=== PATIENT | female | born 1970 | race Caucasian/White ===

== ENCOUNTER 2017-04-22 13:20 | Observation (INO) | payer OTHER ==
[2017-04-22] MEDS ORDERED: Sodium Chloride 0.9% 1000 ML 1,000 ML IV STA (13:43)
[2017-04-22] MEDS ORDERED: PROTONIX 40 MG IV IV ONE ×2 (13:46→13:58)
[2017-04-22 13:50] LABS: BASOPHIL % 0.5 % (0.0-0.4); Eosinophil % 1.6 % (0.00-5.0); Granulocytes % 52.6 % (36.0-66.0); Lymphocytes % 39.1 % (24.0-44.0); Mean Cell Volume 88.1 fl (78-100); Mean Corpuscular Hemoglobin 28.7 pg (26-32); Mean Platelet Volume 8.7 fl (6-9.5); Monocytes % 6.2 % (0.0-12.0); Platelet Count 276 K/mm3 (150-450); Red Blood Count 4.71 M/mm3 (4.1-5.4); Red Cell Distribution Width 13.6 % (11.5-14.0); White Blood Count 6.1 K/mm3 (4.0-10.5)
--- NOTE | 2017-04-22 13:51 | ERPHSYRPT ---
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, hx gerd, no pud, not dm, no mi, no htn, no smoking, lmp 2yrs Prior Episodes: single episode today Timing/Duration: today Context: sitting Allergies/Adverse Reactions: No Known Drug Allergies Allergy (Verified 03/17/16 21:02) Home Medications: Potassium Chloride 20 Meq Tab [Potassium Chloride 20 MEQ TABLET] 20 meq PO DAILY 03/18/14 [History] Diphenhydramine HCl 25 mg [Benadryl 25 mg Capsule] 25 mg PO HS 03/17/16 [ History] Magnesium Oxide 400 mg [Mag-Ox 400] 400 mg PO DAILY 03/17/16 [History] Hx Tetanus, Diphtheria Vaccination/Date Given: Yes (2012) Hx Influenza Vaccination/Date Given: Yes Hx Pneumococcal Vaccination/Date Given: No Immunizations Up to Date: Yes - Past Medical History Pertinent Past Medical History: Yes Neurological History: No Pertinent History ENT History: No Pertinent History Cardiac History: Other Respiratory History: No Pertinent History Endocrine Medical History: No Pertinent History Musculoskeletal History: No Pertinent History GI Medical History: No Pertinent History History: No Pertinent History Psycho-Social History: No Pertinent History Female Reproductive Disorders: No Pertinent History Other Medical History: Low Potassium, mag - Past Surgical History Past Surgical History: Yes Neuro Surgical History: No Pertinent History Cardiac: No Pertinent History Respiratory: No Pertinent History Gastrointestinal: No Pertinent History Genitourinary: No Pertinent History Musculoskeletal: No Pertinent History Female Surgical History: Tubal Ligation Other Surgical History: tonsils - Social History Smoking Status: Never smoker Exposure to second hand smoke: No Alcohol Use: None Drug Use: none Patient Lives Alone: No Significant Family History: no pertinent family hx - Female History Hx Last Menstrual Period: post Hx Now: No - Review of Systems Constitutional: No Symptoms Eyes: No Symptoms Ears, Nose, & Throat: No Symptoms Respiratory: No Symptoms Cardiac: Chest Pain Abdominal/Gastrointestinal: Abdominal Pain Musculoskeletal: No Back Pain Skin: No Symptoms Neurological: Dizziness, No Focal Weakness Psychological: No Symptoms Physical Exam - Nursing Vital Signs Nursing Vital Signs: Initial Vital Signs Temperature 97.4 F 04/22/17 13:29 Pulse Rate 74 04/22/17 13:29 Respiratory Rate 18 04/22/17 13:29 Blood Pressure 184/100 04/22/17 13:29 O2 Sat by Pulse Oximetry 100 04/22/17 13:29 Pain Scale Pain Intensity 0 - Physical Exam General Appearance: no apparent distress, alert Eye Exam: bilateral eye: PERRL, EOMI Ears, Nose, Throat Exam: moist mucous membranes Neck Exam: normal inspection Respiratory: normal breath sounds Cardiovascular: regular rate/rhythm Gastrointestinal: soft, No tenderness Extremity Exam: normal inspection Mental Status: alert, oriented x 3, 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 Exam: normal hearing, normal speech Skin Exam: normal color, warm, dry SpO2 Interpretation: normal SpO2: 100 Oxygen Delivery: Room Air - Course Nursing assessment & vital signs reviewed: Yes EKG Interpreted by Me: Other (nsr 64, no stemi) - Radiology Exams Chest X-ray Interpretation: Discussed w/ radiologist, Other (atelectasis w/o gross infiltrate) - CT Exams Head CT Interpretation: Negative, Discussed w/radiologist Ordered Tests: Active Orders 24 hr Category Date Time Status Still Tender STAT Care 04/22/17 13:45 Active EKG-ER Only STAT Care 04/22/17 13:43 Active IV Insertion STAT Care 04/22/17 13:43 Active CHEST 1 VIEW (PORTABLE) Stat Exams 04/22/17 13:44 Completed HEAD WITHOUT CONTRAST [CT] Stat Exams 04/22/17 13:45 Completed CBC W DIFF Stat Lab 04/22/17 13:35 Completed CMP Stat Lab 04/22/17 13:35 Completed CULTURE,URINE Stat Lab 04/22/17 Received D-DIMER QUANTITATION Stat Lab 04/22/17 13:35 Completed HCG QUALITATIVE,SERUM Stat Lab 04/22/17 14:00 Completed PROTIME WITH INR Stat Lab 04/22/17 13:35 Completed TROPONIN Q3H Lab 04/22/17 13:35 Completed TROPONIN Q3H Lab 04/22/17 18:00 Ordered TROPONIN Q3H Lab 04/22/17 21:00 Ordered TROPONIN Q3H Lab 04/23/17 00:00 Ordered TROPONIN Q3H Lab 04/23/17 03:00 Ordered UA W/ MICROSCOPIC Stat Lab 04/22/17 Completed Transfer Order Routine Transfer 04/22/17 Ordered Medication Summary Discontinued Medications Generic Name Dose Route Start Last Admin Trade Name Geoq PRN Reason Stop Dose Admin Aspirin 324 mg 04/22/17 16:16 04/22/17 16:19 Baby Aspirin 81 Mg Chew PO 04/22/17 16:17 324 mg STAT ONE Administration Sodium Chloride 1,000 mls @ 999 mls/hr 04/22/17 13:43 04/22/17 14:08 Sodium Chloride 0.9% 1000 Ml IV 04/22/17 14:43 999 mls/hr .Q1H1M STA Administration Sodium Chloride Confirm 04/22/17 13:58 Sodium Chloride 0.9% 1000 Ml Administered 04/22/17 13:59 Dose 1,000 mls @ ud .ROUTE .STK-MED ONE Pantoprazole Sodium 40 mg 04/22/17 13:46 04/22/17 14:08 Protonix 40 Mg Iv IV 04/22/17 13:47 40 mg STAT ONE Administration Pantoprazole Sodium Confirm 04/22/17 13:58 Protonix 40 Mg Iv Administered 04/22/17 13:59 Dose 40 mg IV .STK-MED ONE Lab/Rad Data: Laboratory Result Diagrams 04/22/17 13:35 04/22/17 13:35 Laboratory Results 04/22/17 04/22/17 04/22/17 Range/Units Unknown 14:00 13:35 WBC (4.0-10.5) K/mm3 RBC (4.1-5.4) M/mm3 Hgb (12.0-16.0) gm/dl Hct (35-47) % MCV (78-100) fl MCH (26-32) pg MCHC (32-36) g/dl RDW (11.5-14.0) % Plt Count (150-450) K/mm3 MPV (6-9.5) fl Gran % (36.0-66.0) % Lymphocytes % (24.0-44.0) % Monocytes % (0.0-12.0) % Eosinophils % (0.00-5.0) % Basophils % (0.0-0.4) % Basophils # (0-0.4) INR (0.8-3.0) D-Dimer (0-500) ng/mL Sodium (136-145) mEq/L Potassium (3.5-5.1) mEq/L Chloride (98-107) mEq/L Carbon Dioxide (21-32) mEq/L Anion Gap (5-15) MEQ/L BUN (9-20) mg/dL Creatinine (0.55-1.30) mg/dl Estimated GFR ML/MIN Glucose (70-110) MG/DL Calcium (8.5-10.1) mg/dL Total Bilirubin (0.2-1.0) mg/dL AST (15-37) U/L ALT (12-78) U/L Alkaline Phosphatase (46-116) U/L Troponin I < 0.017 (0.000-0.056) ng/ml Serum Total Protein (6.4-8.2) gm/dL Albumin (3.4-5.0) g/dL Serum , Qual NEGATIVE (Negative) Ur Collection Type CCMS Urine Color YELLOW (YELLOW) Urine Appearance CLEAR (CLEAR) Urine pH 5.0 (5-6) Ur Specific Roy 1.020 (1.005-1.025) Urine Protein NEGATIVE (Negative) Urine Ketones NEGATIVE (NEGATIVE) Urine Blood 250 (0-5) Adonay/ul Urine Nitrite NEGATIVE (NEGATIVE) Urine Bilirubin NEGATIVE (NEGATIVE) Urine Urobilinogen NORMAL (0-1) mg/dL Ur Leukocyte Esterase TRACE (NEGATIVE) Urine Microscopic RBC 2-5 (0-2) /HPF Urine Microscopic WBC 2-5 (0-5) /HPF Ur Epithelial Cells FEW (FEW) /HPF Urine Bacteria RARE (NEGATIVE) /HPF Urine Yeast RARE (NEGATIVE) /HPF Urine Culture Reflexed YES (NO) Urine Glucose NEGATIVE (NEGATIVE) mg/dL Specimen Received 04-22-17 1515 04/22/17 04/22/17 04/22/17 Range/Units 13:35 13:35 13:35 WBC 6.1 (4.0-10.5) K/mm3 RBC 4.71 (4.1-5.4) M/mm3 Hgb 13.5 (12.0-16.0) gm/dl Hct 41.5 (35-47) % MCV 88.1 (78-100) fl MCH 28.7 (26-32) pg MCHC 32.5 (32-36) g/dl RDW 13.6 (11.5-14.0) % Plt Count 276 (150-450) K/mm3 MPV 8.7 (6-9.5) fl Gran % 52.6 (36.0-66.0) % Lymphocytes % 39.1 (24.0-44.0) % Monocytes % 6.2 (0.0-12.0) % Eosinophils % 1.6 (0.00-5.0) % Basophils % 0.5 (0.0-0.4) % Basophils # 0.03 (0-0.4) INR 1.01 (0.8-3.0) D-Dimer 307 (0-500) ng/mL Sodium 138 (136-145) mEq/L Potassium 3.2 L (3.5-5.1) mEq/L Chloride 100 (98-107) mEq/L Carbon Dioxide 28.7 (21-32) mEq/L Anion Gap 12.1 (5-15) MEQ/L BUN 16 (9-20) mg/dL Creatinine 1.02 (0.55-1.30) mg/dl Estimated GFR > 60 ML/MIN Glucose 106 (70-110) MG/DL Calcium 9.2 (8.5-10.1) mg/dL Total Bilirubin 0.20 (0.2-1.0) mg/dL AST 23 (15-37) U/L ALT 26 (12-78) U/L Alkaline Phosphatase 147 H (46-116) U/L Troponin I (0.000-0.056) ng/ml Serum Total Protein 7.8 (6.4-8.2) gm/dL Albumin 4.2 (3.4-5.0) g/dL Serum , Qual (Negative) Ur Collection Type Urine Color (YELLOW) Urine Appearance (CLEAR) Urine pH (5-6) Ur Specific Roy (1.005-1.025) Urine Protein (Negative) Urine Ketones (NEGATIVE) Urine Blood (0-5) Adonay/ul Urine Nitrite (NEGATIVE) Urine Bilirubin (NEGATIVE) Urine Urobilinogen (0-1) mg/dL Ur Leukocyte Esterase (NEGATIVE) Urine Microscopic RBC (0-2) /HPF Urine Microscopic WBC (0-5) /HPF Ur Epithelial Cells (FEW) /HPF Urine Bacteria (NEGATIVE) /HPF Urine Yeast (NEGATIVE) /HPF Urine Culture Reflexed (NO) Urine Glucose (NEGATIVE) mg/dL Specimen Received - Progress Progress: improved Discussed with : Curt Will see patient in: hospital (observation) Counseled pt/family regarding: lab results, diagnosis, rad results - Departure Time of Disposition: 16:23 Departure Disposition: Observation Clinical Impression: Near syncope Condition: Stable Critical Care Time: No Referrals: PANCHITO LAM [Primary Care Provider] -
[2017-04-22] MEDS ORDERED: Sodium Chloride 0.9% 1000 ML 1,000 ML ONE (13:58)
[2017-04-22 14:04] LABS: ALBUMIN 4.2 g/dL (3.4-5.0); ALKALINE PHOSPHATASE 147 U/L (46-116); ANION GAP 12.1 MEQ/L (5-15); BLOOD UREA NITROGEN 16 mg/dL (9-20); CHLORIDE 100 mEq/L (98-107); Carbon Dioxide 28.7 mEq/L (21-32); Glucose 106 MG/DL (70-110); Potassium 3.2 mEq/L (3.5-5.1); SGOT/AST 23 U/L (15-37); SGPT/ALT 26 U/L (12-78); SODIUM 138 mEq/L (136-145); Total Protein 7.8 gm/dL (6.4-8.2)
[2017-04-22 14:12] LABS: INR 1.01 (0.8-3.0); PROTIME 11.2 SECONDS (9.95-12.35)
--- NOTE | 2017-04-22 14:14 | XRAY ---
Indication: Near syncope. Comparison: March 18, 2014. Portable chest again demonstrates right infrahilar infiltrate/atelectasis. New opacity silhouettes the left hemidiaphragm favoring left lower lobe infiltrate/atelectasis. Remaining heart and bony thorax unremarkable.
--- NOTE | 2017-04-22 14:15 | XRAY ---
Indication: Near syncope. Multiple contiguous axial images obtained through the head without contrast. Comparison: March 30, 2011. Again normal appearing brain parenchyma, ventricles, and bony calvarium. Visualized paranasal sinuses and mastoid air cells are clear. Impression: Stable normal CT head without contrast exam. CT DI 67.60
[2017-04-22 15:19] LABS: Bacteria RARE /HPF (NEGATIVE); Bilirubin NEGATIVE (NEGATIVE); Blood 250 Ery/ul (0-5); COMPLETE URINE MICROSCOPIC? YES; Collection Type CCMS; Epithelial Cells FEW /HPF (FEW); Glucose NEGATIVE (NEGATIVE); Leukocyte Esterase TRACE (NEGATIVE)
[2017-04-22 15:20] LABS: ADD URINE CULTURE? YES (NO); Yeast RARE /HPF (NEGATIVE)
[2017-04-22] MEDS ORDERED: BABY ASPIRIN 81 MG CHEW PO ONE (16:16)
[2017-04-22] MEDS ORDERED: TYLENOL 325 MG PO PRN (17:02)
[2017-04-22] MEDS ORDERED: Zofran 4 MG/2 ML VIAL IV PRN (17:02)
[2017-04-22] MEDS: Sodium Chloride 0.9% 1000 ML 1,000 ML IV SCH (19:38)
[2017-04-22] MEDS: Klor Con 10 MEQ PO SCH (21:41)
[2017-04-22] MEDS ORDERED: BENADRYL 25 MG CAPSULE PO SCH (22:00)
[2017-04-23 03:42] LABS: ALBUMIN 3.5 g/dL (3.4-5.0); ALKALINE PHOSPHATASE 121 U/L (46-116); ANION GAP 9.5 MEQ/L (5-15); CHLORIDE 108 mEq/L (98-107); Glucose 96 MG/DL (70-110); Potassium 3.9 mEq/L (3.5-5.1); SGOT/AST 21 U/L (15-37); SGPT/ALT 22 U/L (12-78); SODIUM 142 mEq/L (136-145); Total Protein 6.6 gm/dL (6.4-8.2)
[2017-04-23 03:55] LABS: BASOPHIL % 0.2 % (0.0-0.4); Eosinophil % 2.2 % (0.00-5.0); Granulocytes % 54.1 % (36.0-66.0); Lymphocytes % 35.9 % (24.0-44.0); Mean Cell Volume 88.4 fl (78-100); Mean Corpuscular Hemoglobin 28.5 pg (26-32); Mean Platelet Volume 8.7 fl (6-9.5); Monocytes % 7.6 % (0.0-12.0); Platelet Count 248 K/mm3 (150-450); Red Blood Count 4.49 M/mm3 (4.1-5.4); Red Cell Distribution Width 13.8 % (11.5-14.0); White Blood Count 5.5 K/mm3 (4.0-10.5)
[2017-04-23 03:58] LABS: BLOOD UREA NITROGEN 13 mg/dL (9-20)
[2017-04-23] MEDS: Sodium Chloride 0.9% 1000 ML 1,000 ML IV SCH (06:19)
[2017-04-23] MEDS ORDERED: TYLENOL EXTRA STRENGTH 500 MG PO PRN (07:06)
[2017-04-23] MEDS ORDERED: MOTRIN 400 MG PO PRN (07:12)
[2017-04-23 07:57] VITALS: BP 125/82; PULSE 78; O2SAT 96
--- NOTE | 2017-04-23 08:52 | PCM.SSS ---
History of Present Illness - Chief Complaint Chief Complaint: syncope History of Present Illness: is a 47 year old female pt of mine from [facility] with PMHx chronic hypokalemia who came to ER yesterday after a presyncopal episode. She felt normally in the morning and went out to lunch with our DON. Before eating she started having epigastric discomfort, 7/10 (denies burning). She then had nausea, no vomiting. After that she started feeling sweaty and it sounds as though the DON was having a hard time getting her to respond. After this resolved she felt much better, would not go to ER with EMS but did allow herself to be driven to ER in POV. No pain when in the ER. K+ was 3.2. She was admitted for chest pain r/o VT and telemetry overnight. She has had similar episodes in the past with overnight hospital stays. Her workup has included seeing Dr. Hernandez, with echo and stress test. She has had HIDA scan within the past 1 yr (May 2016) with normal EF. She states at one point gallbladder sludge was visible on imaging. She denies any abd pain this morning. Tolerated breakfast well and wants to go home. - Review of Systems Cardiac: Other (presyncope) Abdominal/Gastrointestinal: Abdominal Pain, Nausea Genitourinary Symptoms: Hematuria (microscopic) Neurological: Headache (last night; resolved with eating) All Other Systems: Reviewed and Negative Medications & Allergies Home Medications: Home Medication List Potassium Chloride 20 Meq Tab [Potassium Chloride 20 MEQ TABLET] 20 meq PO DAILY 03/18/14 [History Confirmed 04/22/17] Diphenhydramine HCl 25 mg [Benadryl 25 mg Capsule] 25 mg PO HS 03/17/16 [ History Confirmed 04/22/17] Magnesium Oxide 400 mg [Mag-Ox 400] 400 mg PO DAILY 03/17/16 [History Confirmed 04/22/17] Acetaminophen [Tylenol Extra Strength] 2 tab PO Q4HPRN PRN 04/22/17 [History Confirmed 04/22/17] Ibuprofen 200 mg [Motrin 200 mg] 400 mg PO Q6HPRN PRN 04/22/17 [History Confirmed 04/22/17] Naproxen 375 mg [Naprosyn 375 mg] 375 mg PO [id number] PRN 04/22/17 [History Confirmed 04/22/17] Omeprazole 20 MG [Prilosec 20 mg] 20 mg PO DAILY #30 capsule. 04/23/17 [Rx] Potassium Chloride 10 Meq Tab* [Klor Con 10 MEQ] 20 meq PO TID #90 tab [Rx] Allergies/Adverse Reactions: Allergies Allergy/AdvReac Type Severity Reaction Status Date / Time No Known Drug Allergies Allergy Verified 04/22/17 17:20 - Past Medical History Past Medical History: Yes Neurological History: No Pertinent History ENT History: No Pertinent History Cardiac History: Other Respiratory History: No Pertinent History Endocrine Medical History: No Pertinent History Musculoskelatal History: No Pertinent History GI Medical History: No Pertinent History History: No Pertinent History Pyscho-Social History: No Pertinent History Reproductive Disorders: No Pertinent History Comment: Low Potassium, mag see Saul for nephrolgist and David for cardiology - Female History Hx Last Menstrual Period: post Are you now?: No - Past Surgical History Past Surgical History: Yes Neuro Surgical History: No Pertinent History Cardiac History: No Pertinent History Respiratory Surgery: No Pertinent History GI Surgical History: No Pertinent History Genitourinary Surgical Hx: No Pertinent History Musculskeletal Surgical Hx: No Pertinent History Female Surgical History: Tubal Ligation Other Surgical History: tonsils - Social History Smoking Status: Never smoker Exposure to second hand smoke: No Alcohol: None Drug Use: none Significant Family History: no pertinent family hx - Physical Exam Vital Signs: Vital Signs - 24 hr Temp Pulse Resp BP Pulse Ox 04/23/17 07:56 97.9 F 78 19 125/82 96 04/23/17 04:00 16 04/23/17 03:48 97.6 F 64 16 134/72 97 04/23/17 00:00 16 04/22/17 23:59 98.0 F 71 16 118/75 98 04/22/17 20:37 98.2 F 66 16 153/73 98 04/22/17 20:00 12 04/22/17 18:00 99 04/22/17 17:26 98.3 F 72 12 149/75 99 04/22/17 16:52 67 18 151/85 04/22/17 16:23 100 04/22/17 16:03 76 16 156/106 97 04/22/17 14:49 62 18 145/71 04/22/17 14:27 70 18 159/74 97 04/22/17 14:10 74 18 152/100 04/22/17 13:29 97.4 F 74 18 184/100 100 General Appearance: no apparent distress, alert Neurologic Exam: oriented x 3 Eye Exam: eyes nml inspection Ears, Nose, Throat Exam: moist mucous membranes Neck Exam: normal inspection, non-tender, No lymphadenopathy Respiratory Exam: normal breath sounds, lungs clear, No crackles/rales, No rhonchi, No wheezing Cardiovascular Exam: regular rate/rhythm, normal heart sounds, No murmur Gastrointestinal/Abdomen Exam: soft, normal bowel sounds, tenderness (epigastrum ), No distention, No mass, No guarding, No rebound Back Exam: normal inspection, No rash Extremity Exam: No pedal edema, No swelling Skin Exam: normal color, warm, dry Results - Labs Lab/Micro Results: Lab Results-Last 24 Hours 04/22/17 04/22/17 04/22/17 Range/Units 18:15 21:13 Unknown WBC (4.0-10.5) K/mm3 RBC (4.1-5.4) M/mm3 Hgb (12.0-16.0) gm/dl Hct (35-47) % MCV (78-100) fl MCH (26-32) pg MCHC (32-36) g/dl RDW (11.5-14.0) % Plt Count (150-450) K/mm3 MPV (6-9.5) fl Gran % (36.0-66.0) % Lymphocytes % (24.0-44.0) % Monocytes % (0.0-12.0) % Eosinophils % (0.00-5.0) % Basophils % (0.0-0.4) % Basophils # (0-0.4) Sodium (136-145) mEq/L Potassium (3.5-5.1) mEq/L Chloride (98-107) mEq/L Carbon Dioxide (21-32) mEq/L Anion Gap (5-15) MEQ/L BUN (9-20) mg/dL Creatinine (0.55-1.30) mg/dl Estimated GFR ML/MIN Glucose (70-110) MG/DL Calcium (8.5-10.1) mg/dL Total Bilirubin (0.2-1.0) mg/dL AST (15-37) U/L ALT (12-78) U/L Alkaline Phosphatase (46-116) U/L Troponin I < 0.017 < 0.017 (0.000-0.056) ng/ml Serum Total Protein (6.4-8.2) gm/dL Albumin (3.4-5.0) g/dL Ur Collection Type CCMS Urine Color YELLOW (YELLOW) Urine Appearance CLEAR (CLEAR) Urine pH 5.0 (5-6) Ur Specific Gaines 1.020 (1.005-1.025) Urine Protein NEGATIVE (Negative) Urine Ketones NEGATIVE (NEGATIVE) Urine Blood 250 (0-5) Adonay/ul Urine Nitrite NEGATIVE (NEGATIVE) Urine Bilirubin NEGATIVE (NEGATIVE) Urine Urobilinogen NORMAL (0-1) mg/dL Ur Leukocyte Esterase TRACE (NEGATIVE) Urine Microscopic RBC 2-5 (0-2) /HPF Urine Microscopic WBC 2-5 (0-5) /HPF Ur Epithelial Cells FEW (FEW) /HPF Urine Bacteria RARE (NEGATIVE) /HPF Urine Yeast RARE (NEGATIVE) /HPF Urine Culture Reflexed YES (NO) Urine Glucose NEGATIVE (NEGATIVE) mg/dL Specimen Received 04-22-17 1515 04/23/17 04/23/17 04/23/17 Range/Units 00:16 03:08 03:08 WBC 5.5 (4.0-10.5) K/mm3 RBC 4.49 (4.1-5.4) M/mm3 Hgb 12.8 (12.0-16.0) gm/dl Hct 39.7 (35-47) % MCV 88.4 (78-100) fl MCH 28.5 (26-32) pg MCHC 32.2 (32-36) g/dl RDW 13.8 (11.5-14.0) % Plt Count 248 (150-450) K/mm3 MPV 8.7 (6-9.5) fl Gran % 54.1 (36.0-66.0) % Lymphocytes % 35.9 (24.0-44.0) % Monocytes % 7.6 (0.0-12.0) % Eosinophils % 2.2 (0.00-5.0) % Basophils % 0.2 (0.0-0.4) % Basophils # 0.01 (0-0.4) Sodium (136-145) mEq/L Potassium (3.5-5.1) mEq/L Chloride (98-107) mEq/L Carbon Dioxide (21-32) mEq/L Anion Gap (5-15) MEQ/L BUN (9-20) mg/dL Creatinine (0.55-1.30) mg/dl Estimated GFR ML/MIN Glucose (70-110) MG/DL Calcium (8.5-10.1) mg/dL Total Bilirubin (0.2-1.0) mg/dL AST (15-37) U/L ALT (12-78) U/L Alkaline Phosphatase (46-116) U/L Troponin I < 0.017 < 0.017 (0.000-0.056) ng/ml Serum Total Protein (6.4-8.2) gm/dL Albumin (3.4-5.0) g/dL Ur Collection Type Urine Color (YELLOW) Urine Appearance (CLEAR) Urine pH (5-6) Ur Specific Gaines (1.005-1.025) Urine Protein (Negative) Urine Ketones (NEGATIVE) Urine Blood (0-5) Adonay/ul Urine Nitrite (NEGATIVE) Urine Bilirubin (NEGATIVE) Urine Urobilinogen (0-1) mg/dL Ur Leukocyte Esterase (NEGATIVE) Urine Microscopic RBC (0-2) /HPF Urine Microscopic WBC (0-5) /HPF Ur Epithelial Cells (FEW) /HPF Urine Bacteria (NEGATIVE) /HPF Urine Yeast (NEGATIVE) /HPF Urine Culture Reflexed (NO) Urine Glucose (NEGATIVE) mg/dL Specimen Received 04/23/17 Range/Units 03:08 WBC (4.0-10.5) K/mm3 RBC (4.1-5.4) M/mm3 Hgb (12.0-16.0) gm/dl Hct (35-47) % MCV (78-100) fl MCH (26-32) pg MCHC (32-36) g/dl RDW (11.5-14.0) % Plt Count (150-450) K/mm3 MPV (6-9.5) fl Gran % (36.0-66.0) % Lymphocytes % (24.0-44.0) % Monocytes % (0.0-12.0) % Eosinophils % (0.00-5.0) % Basophils % (0.0-0.4) % Basophils # (0-0.4) Sodium 142 (136-145) mEq/L Potassium 3.9 (3.5-5.1) mEq/L Chloride 108 H (98-107) mEq/L Carbon Dioxide 28.0 (21-32) mEq/L Anion Gap 9.5 (5-15) MEQ/L BUN 13 (9-20) mg/dL Creatinine 0.89 (0.55-1.30) mg/dl Estimated GFR > 60 ML/MIN Glucose 96 (70-110) MG/DL Calcium 8.8 (8.5-10.1) mg/dL Total Bilirubin 0.30 (0.2-1.0) mg/dL AST 21 (15-37) U/L ALT 22 (12-78) U/L Alkaline Phosphatase 121 H (46-116) U/L Troponin I (0.000-0.056) ng/ml Serum Total Protein 6.6 (6.4-8.2) gm/dL Albumin 3.5 (3.4-5.0) g/dL Ur Collection Type Urine Color (YELLOW) Urine Appearance (CLEAR) Urine pH (5-6) Ur Specific Gaines (1.005-1.025) Urine Protein (Negative) Urine Ketones (NEGATIVE) Urine Blood (0-5) Adonay/ul Urine Nitrite (NEGATIVE) Urine Bilirubin (NEGATIVE) Urine Urobilinogen (0-1) mg/dL Ur Leukocyte Esterase (NEGATIVE) Urine Microscopic RBC (0-2) /HPF Urine Microscopic WBC (0-5) /HPF Ur Epithelial Cells (FEW) /HPF Urine Bacteria (NEGATIVE) /HPF Urine Yeast (NEGATIVE) /HPF Urine Culture Reflexed (NO) Urine Glucose (NEGATIVE) mg/dL Specimen Received Assessment/Plan (1) Epigastric pain Current Visit: Yes Status: Acute Assessment & Plan: Will repeat GB u/s outpatient; if negative consider repeating HIDA scan and doing EGD (last done approx 15 yrs ago). Code(s): R10.13 - EPIGASTRIC PAIN (2) Hypokalemia Current Visit: Yes Status: Acute Assessment & Plan: corrected this a.m. Potassium 20mEq po BID at home. Code(s): E87.6 - HYPOKALEMIA (3) Near syncope Current Visit: Yes Status: Acute Assessment & Plan: Could have been precipitated by abdominal pain (vagal response). No findings acutely. Has been cleared from cardiac standpoint. (4) Microscopic hematuria Current Visit: Yes Status: Acute Assessment & Plan: Recheck urine in 1 mo. Code(s): R31.29 - OTHER MICROSCOPIC HEMATURIA Hospital Summary - Hospital Course Hospital Course: Pt admitted with abd paina nd near syncope. VT ruled out. She did have mild hypokalemia which was corrected. Telemetry with no changes. Has been cleared from cardiac standpoint in the past. She will be discharged to home and get GB u/s outpatient, possibly followed by HIDA and EGD. She had mild microscopic hematuria; recheck UA 1 mo. - Vitals & Intake/Output Vital Signs: Vital Signs Temperature 97.9 F 04/23/17 07:56 Pulse Rate 78 04/23/17 07:56 Respiratory Rate 19 04/23/17 07:56 Blood Pressure 125/82 04/23/17 07:56 O2 Sat by Pulse Oximetry 96 04/23/17 07:56 Intake & Output: Intake & Output 04/20/17 04/21/17 04/22/17 04/23/17 11:59 11:59 11:59 11:59 Intake Total 360 Balance 360 Weight 85.474 kg - Lab Result Diagrams: 04/23/17 03:08 04/23/17 03:08 Lab Results-Last 24 Hrs: Lab Results-Last 24 Hours 04/22/17 04/22/17 04/22/17 Range/Units 18:15 21:13 Unknown WBC (4.0-10.5) K/mm3 RBC (4.1-5.4) M/mm3 Hgb (12.0-16.0) gm/dl Hct (35-47) % MCV (78-100) fl MCH (26-32) pg MCHC (32-36) g/dl RDW (11.5-14.0) % Plt Count (150-450) K/mm3 MPV (6-9.5) fl Gran % (36.0-66.0) % Lymphocytes % (24.0-44.0) % Monocytes % (0.0-12.0) % Eosinophils % (0.00-5.0) % Basophils % (0.0-0.4) % Basophils # (0-0.4) Sodium (136-145) mEq/L Potassium (3.5-5.1) mEq/L Chloride (98-107) mEq/L Carbon Dioxide (21-32) mEq/L Anion Gap (5-15) MEQ/L BUN (9-20) mg/dL Creatinine (0.55-1.30) mg/dl Estimated GFR ML/MIN Glucose (70-110) MG/DL Calcium (8.5-10.1) mg/dL Total Bilirubin (0.2-1.0) mg/dL AST (15-37) U/L ALT (12-78) U/L Alkaline Phosphatase (46-116) U/L Troponin I < 0.017 < 0.017 (0.000-0.056) ng/ml Serum Total Protein (6.4-8.2) gm/dL Albumin (3.4-5.0) g/dL Ur Collection Type CCMS Urine Color YELLOW (YELLOW) Urine Appearance CLEAR (CLEAR) Urine pH 5.0 (5-6) Ur Specific Gaines 1.020 (1.005-1.025) Urine Protein NEGATIVE (Negative) Urine Ketones NEGATIVE (NEGATIVE) Urine Blood 250 (0-5) Adonay/ul Urine Nitrite NEGATIVE (NEGATIVE) Urine Bilirubin NEGATIVE (NEGATIVE) Urine Urobilinogen NORMAL (0-1) mg/dL Ur Leukocyte Esterase TRACE (NEGATIVE) Urine Microscopic RBC 2-5 (0-2) /HPF Urine Microscopic WBC 2-5 (0-5) /HPF Ur Epithelial Cells FEW (FEW) /HPF Urine Bacteria RARE (NEGATIVE) /HPF Urine Yeast RARE (NEGATIVE) /HPF Urine Culture Reflexed YES (NO) Urine Glucose NEGATIVE (NEGATIVE) mg/dL Specimen Received 04-22-17 1515 04/23/17 04/23/17 04/23/17 Range/Units 00:16 03:08 03:08 WBC 5.5 (4.0-10.5) K/mm3 RBC 4.49 (4.1-5.4) M/mm3 Hgb 12.8 (12.0-16.0) gm/dl Hct 39.7 (35-47) % MCV 88.4 (78-100) fl MCH 28.5 (26-32) pg MCHC 32.2 (32-36) g/dl RDW 13.8 (11.5-14.0) % Plt Count 248 (150-450) K/mm3 MPV 8.7 (6-9.5) fl Gran % 54.1 (36.0-66.0) % Lymphocytes % 35.9 (24.0-44.0) % Monocytes % 7.6 (0.0-12.0) % Eosinophils % 2.2 (0.00-5.0) % Basophils % 0.2 (0.0-0.4) % Basophils # 0.01 (0-0.4) Sodium (136-145) mEq/L Potassium (3.5-5.1) mEq/L Chloride (98-107) mEq/L Carbon Dioxide (21-32) mEq/L Anion Gap (5-15) MEQ/L BUN (9-20) mg/dL Creatinine (0.55-1.30) mg/dl Estimated GFR ML/MIN Glucose (70-110) MG/DL Calcium (8.5-10.1) mg/dL Total Bilirubin (0.2-1.0) mg/dL AST (15-37) U/L ALT (12-78) U/L Alkaline Phosphatase (46-116) U/L Troponin I < 0.017 < 0.017 (0.000-0.056) ng/ml Serum Total Protein (6.4-8.2) gm/dL Albumin (3.4-5.0) g/dL Ur Collection Type Urine Color (YELLOW) Urine Appearance (CLEAR) Urine pH (5-6) Ur Specific Gaines (1.005-1.025) Urine Protein (Negative) Urine Ketones (NEGATIVE) Urine Blood (0-5) Adonay/ul Urine Nitrite (NEGATIVE) Urine Bilirubin (NEGATIVE) Urine Urobilinogen (0-1) mg/dL Ur Leukocyte Esterase (NEGATIVE) Urine Microscopic RBC (0-2) /HPF Urine Microscopic WBC (0-5) /HPF Ur Epithelial Cells (FEW) /HPF Urine Bacteria (NEGATIVE) /HPF Urine Yeast (NEGATIVE) /HPF Urine Culture Reflexed (NO) Urine Glucose (NEGATIVE) mg/dL Specimen Received 04/23/17 Range/Units 03:08 WBC (4.0-10.5) K/mm3 RBC (4.1-5.4) M/mm3 Hgb (12.0-16.0) gm/dl Hct (35-47) % MCV (78-100) fl MCH (26-32) pg MCHC (32-36) g/dl RDW (11.5-14.0) % Plt Count (150-450) K/mm3 MPV (6-9.5) fl Gran % (36.0-66.0) % Lymphocytes % (24.0-44.0) % Monocytes % (0.0-12.0) % Eosinophils % (0.00-5.0) % Basophils % (0.0-0.4) % Basophils # (0-0.4) Sodium 142 (136-145) mEq/L Potassium 3.9 (3.5-5.1) mEq/L Chloride 108 H (98-107) mEq/L Carbon Dioxide 28.0 (21-32) mEq/L Anion Gap 9.5 (5-15) MEQ/L BUN 13 (9-20) mg/dL Creatinine 0.89 (0.55-1.30) mg/dl Estimated GFR > 60 ML/MIN Glucose 96 (70-110) MG/DL Calcium 8.8 (8.5-10.1) mg/dL Total Bilirubin 0.30 (0.2-1.0) mg/dL AST 21 (15-37) U/L ALT 22 (12-78) U/L Alkaline Phosphatase 121 H (46-116) U/L Troponin I (0.000-0.056) ng/ml Serum Total Protein 6.6 (6.4-8.2) gm/dL Albumin 3.5 (3.4-5.0) g/dL Ur Collection Type Urine Color (YELLOW) Urine Appearance (CLEAR) Urine pH (5-6) Ur Specific Gaines (1.005-1.025) Urine Protein (Negative) Urine Ketones (NEGATIVE) Urine Blood (0-5) Adonay/ul Urine Nitrite (NEGATIVE) Urine Bilirubin (NEGATIVE) Urine Urobilinogen (0-1) mg/dL Ur Leukocyte Esterase (NEGATIVE) Urine Microscopic RBC (0-2) /HPF Urine Microscopic WBC (0-5) /HPF Ur Epithelial Cells (FEW) /HPF Urine Bacteria (NEGATIVE) /HPF Urine Yeast (NEGATIVE) /HPF Urine Culture Reflexed (NO) Urine Glucose (NEGATIVE) mg/dL Specimen Received - Discharge Disposition: Home, Self-Care Condition: Stable Prescriptions: New Potassium Chloride 10 Meq Tab* [Klor Con 10 MEQ] 20 meq PO TID #90 tab Omeprazole 20 MG [Prilosec 20 mg] 20 mg PO DAILY #30 capsule.dr Continue Potassium Chloride 20 Meq Tab [Potassium Chloride 20 MEQ TABLET] 20 meq PO DAILY Diphenhydramine HCl 25 mg [Benadryl 25 mg Capsule] 25 mg PO HS Magnesium Oxide 400 mg [Mag-Ox 400] 400 mg PO DAILY Ibuprofen 200 mg [Motrin 200 mg] 400 mg PO Q6HPRN PRN PRN Reason: Pain And/Or Fever Acetaminophen [Tylenol Extra Strength] 2 tab PO Q4HPRN PRN PRN Reason: pain/fever Naproxen 375 mg [Naprosyn 375 mg] 375 mg PO [id number] PRN PRN Reason: Pain And/Or Fever Follow up with: PANCHITO LAM [Primary Care Provider] -
[2017-04-23] MEDS: Klor Con 10 MEQ PO SCH (09:30)
[2017-04-23] MEDS ORDERED: MAG-OX 400 PO SCH (10:00)
[2017-04-23] MEDS ORDERED: PROTONIX 40 MG IV IV SCH (10:00)
== END 2017-04-23 09:45 | disposition home or self-care (01) ==
LOC: ED 13:20 → MED SURG 16:58
PROVIDERS: ADMIT Family Medicine; ATTEND Family Medicine
DX: R10.13 Epigastric pain (principal); E87.6 Hypokalemia; R55 Syncope and collapse; R31.29 Other microscopic hematuria
CPT/HCPCS: 36000; 36415; 70450; 71010; 80053; 81000; 84484; 84703; 85025; 85379; 85610; 87086; 93005; 93041; 93268; 96360; 96374; 96375; 99285; G0378; A9270-GY

== ENCOUNTER 2017-10-12 02:18 | Observation (INO) | payer OTHER ==
--- NOTE | 2017-10-12 03:04 | ERPHSYRPT ---
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 states she woke up tonight feeling anxious and withchest tightness. states tightness has resolved but she cont to have the anxious feeling. Triage Nursing Assessment: pt alert and oriented. answers questions approp. pt ambulatory with steady gait noted. respirations nonlaborored with lungs cta. pt restless in bed. heart rated 60's on monitor- sinus rhythm on m onitor. Physician History: The patient is a 47-year-old female with her complaining that she woke up at 2:30 with an overwhelming feeling that she was going to pass out and she was anxious. Her palms were sweaty. She denies any specific chest pain. These overwhelming feelings will come and go. She has been fine while in the ER but she's had 2 episodes of feeling anxious while in the ER. She denies shortness of breath. She does have slight feeling of nausea. About 24 hours ago she had the same overwhelming feelings and felt like she was going to pass out but didn't. Everything resolved and she came to work without any difficulty. She said yesterday all day her left arm felt "heavy". 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 She had a similar episode March 2017 and approximately March 2016. She's been hospitalized and had serial troponins recorded that were all negative. She quit drinking tea at the request of her director safety council and felt better but began drinking tea again about 1 month ago. She has never had a heart catheterization. Her past medical history is significant for recent Viibryd medication, potassium loss. Timing/Duration: yesterday, intermittent, sudden Activities at Onset: sleep Quality: tightness Chest Pain Radiation: no radiation Severity of Pain-Max: mild Severity of Pain-Current: none Modifying Factors: Improves With: nothing Associated Symptoms: nausea, dizziness, No palpitations, No abdominal pain, No shortness of breath, No diaphoresis Prior Chest Pain/Cardiac Workup: non-cardiac, echocardiography Nitro Today/Relief: no nitro taken today Aspirin Treatment Today: no aspirin today Allergies/Adverse Reactions: No Known Drug Allergies Allergy (Verified 10/12/17 02:40) Home Medications: Potassium Chloride 20 Meq Tab [Potassium Chloride 20 MEQ TABLET] 20 meq PO DAILY 03/18/14 [History] Magnesium Oxide 400 mg [Mag-Ox 400] 400 mg PO DAILY 03/17/16 [History] Vilazodone HCl [Viibryd] 1 each PO DAILY 10/12/17 [History] Hx Tetanus, Diphtheria Vaccination/Date Given: Yes (2012) Hx Influenza Vaccination/Date Given: Yes Hx Pneumococcal Vaccination/Date Given: No Immunizations Up to Date: Yes - Review of Systems Constitutional: No Fever, No Chills Eyes: No Symptoms Ears, Nose, & Throat: No Symptoms Respiratory: No Cough, No Dyspnea Cardiac: No Chest Pain, No Edema, No Syncope Abdominal/Gastrointestinal: Nausea Genitourinary Symptoms: No Dysuria Musculoskeletal: No Back Pain, No Neck Pain Skin: No Rash Neurological: No Dizziness, No Focal Weakness, No Sensory Changes Psychological: No Symptoms Endocrine: No Symptoms Hematologic/Lymphatic: No Symptoms Immunological/Allergic: No Symptoms All Other Systems: Reviewed and Negative - Past Medical History Pertinent Past Medical History: Yes Neurological History: No Pertinent History ENT History: No Pertinent History Cardiac History: Other Respiratory History: No Pertinent History Endocrine Medical History: No Pertinent History Musculoskeletal History: No Pertinent History GI Medical History: No Pertinent History History: No Pertinent History Psycho-Social History: No Pertinent History Female Reproductive Disorders: No Pertinent History Other Medical History: Low Potassium, mag see Saul for nephrolgist and David for cardiology - Past Surgical History Past Surgical History: Yes Neuro Surgical History: No Pertinent History Cardiac: No Pertinent History Respiratory: No Pertinent History Gastrointestinal: No Pertinent History Genitourinary: No Pertinent History Musculoskeletal: No Pertinent History Female Surgical History: Tubal Ligation Other Surgical History: tonsils - Social History Smoking Status: Never smoker Exposure to second hand smoke: No Alcohol Use: None Drug Use: none Patient Lives Alone: No Significant Family History: no pertinent family hx - Female History Hx Last Menstrual Period: menopausal Hx Now: No - Nursing Vital Signs Nursing Vital Signs: Initial Vital Signs Temperature 97.8 F 10/12/17 02:25 Pulse Rate 64 10/12/17 02:25 Respiratory Rate 18 10/12/17 02:25 Blood Pressure 161/120 10/12/17 02:25 O2 Sat by Pulse Oximetry 99 10/12/17 02:25 Pain Scale Pain Intensity 0 - Physical Exam General Appearance: no apparent distress, alert Eye Exam: PERRL/EOMI, eyes nml inspection Ears, Nose, Throat Exam: normal ENT inspection, moist mucous membranes Neck Exam: normal inspection, non-tender, supple, full range of motion Respiratory Exam: normal breath sounds, lungs clear, No respiratory distress Cardiovascular Exam: regular rate/rhythm, murmur Gastrointestinal/Abdomen Exam: soft, No tenderness, No mass Pelvic Exam: not done Rectal Exam: not done Back Exam: normal inspection, No CVA tenderness, No vertebral tenderness Extremity Exam: normal inspection, normal range of motion Neurologic Exam: alert, oriented x 3, cooperative, normal mood/affect, sensation nml, No motor deficits Skin Exam: normal color, warm, dry SpO2 Interpretation: normal SpO2: 99 Oxygen Delivery: Room Air - Course EKG Interpreted by Me: RATE, Sinus Rhythm, NORMAL AXIS, NORMAL INTERVALS, NORMAL QRS, NORMAL ST-T, Other (no change in EKG compared to EKG of 04/22/17.) - Radiology Exams Chest X-ray Interpretation: Interpreted by me, Negative (comp 1V CXR 04/22/17.) Ordered Tests: Active Orders 24 hr Category Date Time Status Mate Fourth STAT Care 10/12/17 03:13 Active EKG-ER Only STAT Care 10/12/17 03:12 Active IV Insertion STAT Care 10/12/17 03:12 Active Oxygen-ED Only NASAL CANNULA 2 lpm Care 10/12/17 03:12 Active Pulse Oximetry (ED) STAT Care 10/12/17 03:12 Active CHEST 2 VIEWS (PA AND LAT) Stat Exams 10/12/17 03:12 Taken CBC W DIFF Stat Lab 10/12/17 03:00 Completed CMP Stat Lab 10/12/17 03:00 Completed NT PRO BNP Stat Lab 10/12/17 03:00 Completed TROPONIN Q3H Lab 10/12/17 03:00 Completed TROPONIN Q3H Lab 10/12/17 06:15 Ordered TROPONIN Q3H Lab 10/12/17 09:15 Ordered TROPONIN Q3H Lab 10/12/17 12:15 Ordered TROPONIN Q3H Lab 10/12/17 15:15 Ordered Medication Summary Discontinued Medications Generic Name Dose Route Start Last Admin Trade Name Freq PRN Reason Stop Dose Admin Aspirin 324 mg 10/12/17 03:12 10/12/17 03:22 Baby Aspirin 81 Mg Chew PO 10/12/17 03:13 324 mg STAT ONE Administration Aspirin Confirm 10/12/17 03:17 Baby Aspirin 81 Mg Chew Administered 10/12/17 03:18 Dose 324 mg .ROUTE .STK-MED ONE Ondansetron HCl 4 mg 10/12/17 03:12 10/12/17 03:22 Zofran 4 Mg/2 Ml Vial IV 10/12/17 03:13 4 mg STAT ONE Administration Ondansetron HCl Confirm 10/12/17 03:17 Zofran 4 Mg/2 Ml Vial Administered 10/12/17 03:18 Dose 4 mg .ROUTE .STK-MED ONE Lab/Rad Data: Laboratory Result Diagrams 10/12/17 03:00 10/12/17 03:00 Laboratory Results 10/12/17 10/12/17 10/12/17 Range/Units 03:00 03:00 03:00 WBC 9.2 (4.0-10.5) K/mm3 RBC 4.82 (4.1-5.4) M/mm3 Hgb 14.0 (12.0-16.0) gm/dl Hct 41.8 (35-47) % MCV 86.7 (78-100) fl MCH 29.0 (26-32) pg MCHC 33.5 (32-36) g/dl RDW 14.2 H (11.5-14.0) % Plt Count 289 (150-450) K/mm3 MPV 8.9 (6-9.5) fl Gran % 52.9 (36.0-66.0) % Eos # (Auto) 0.13 (0-0.5) Absolute Lymphs (auto) 3.58 (1.0-4.6) Absolute Monos (auto) 0.60 (0.0-1.3) Lymphocytes % 39.0 (24.0-44.0) % Monocytes % 6.5 (0.0-12.0) % Eosinophils % 1.4 (0.00-5.0) % Basophils % 0.2 (0.0-0.4) % Absolute Granulocytes 4.86 (1.4-6.9) Basophils # 0.02 (0-0.4) Sodium 142 (137-145) mmol/L Potassium 3.5 (3.5-5.1) mmol/L Chloride 101 (98-107) mmol/L Carbon Dioxide 28 (22-30) mmol/L Anion Gap 16.1 H (5-15) MEQ/L BUN 14 (7-17) mg/dL Creatinine 0.77 (0.52-1.04) mg/dL Estimated GFR > 60.0 ML/MIN Glucose 104 (74-106) mg/dL Calcium 9.7 (8.4-10.2) mg/dL Total Bilirubin 0.30 (0.2-1.3) mg/dL AST 37 H (14-36) U/L ALT 30 (0-35) U/L Alkaline Phosphatase 141 H (38-126) U/L Troponin I < 0.012 (0.000-0.034) ng/mL NT-Pro-B Natriuret Pep 52.9 (0-450) pg/mL Serum Total Protein 7.6 (6.3-8.2) g/dL Albumin 4.4 (3.5-5.0) g/dL - Progress Progress: unchanged Air Movement: good Discussed with Dr.: Jonah (for Dr Elias.) Will see patient in: hospital (observation) Counseled pt/family regarding: lab results, diagnosis, rad results - Departure Time of Disposition: 04:09 Departure Disposition: Observation (Per Dr Mckenzie for Dr Elias) Clinical Impression: Chest pain Condition: Stable Critical Care Time: No Referrals: PANCHITO ELIAS [Primary Care Provider] -
[2017-10-12] MEDS ORDERED: BABY ASPIRIN 81 MG CHEW PO ONE (03:12)
[2017-10-12] MEDS ORDERED: Zofran 4 MG/2 ML VIAL IV ONE (03:12)
[2017-10-12] MEDS ORDERED: BABY ASPIRIN 81 MG CHEW ONE (03:17)
[2017-10-12] MEDS ORDERED: Zofran 4 MG/2 ML VIAL ONE (03:17)
[2017-10-12 03:34] LABS: ALBUMIN 4.4 g/dL (3.5-5.0); ALKALINE PHOSPHATASE 141 U/L (38-126); ANION GAP 16.1 MEQ/L (5-15); BLOOD UREA NITROGEN 14 mg/dL (7-17); CHLORIDE 101 mmol/L (98-107); Calcium 9.7 mg/dL (8.4-10.2); Carbon Dioxide 28 mmol/L (22-30); Creatinine 1 0.77 mg/dL (0.52-1.04); Glucose 104 mg/dL (74-106); Potassium 3.5 mmol/L (3.5-5.1); SGOT/AST 37 U/L (14-36); SGPT/ALT 30 U/L (0-35); SODIUM 142 mmol/L (137-145); Total Protein 7.6 g/dL (6.3-8.2)
[2017-10-12 03:40] LABS: BASOPHIL % 0.2 % (0.0-0.4); Basophil (Absolute #) 0.02 (0-0.4); Eosinophil % 1.4 % (0.00-5.0); Eosinophil (Absolute #) 0.13 (0-0.5); Granulocyte Absolute (ANC) 4.86 (1.4-6.9); Granulocytes % 52.9 % (36.0-66.0); Hematocrit 41.8 % (35-47); Lymphocyte (Absolute #) 3.58 (1.0-4.6); Mean Cell Volume 86.7 fl (78-100); Mean Corpuscular Hgb Concent. 33.5 g/dl (32-36); Mean Platelet Volume 8.9 fl (6-9.5); Monocytes % 6.5 % (0.0-12.0); Platelet Count 289 K/mm3 (150-450); Red Blood Count 4.82 M/mm3 (4.1-5.4); Red Cell Distribution Width 14.2 % (11.5-14.0); White Blood Count 9.2 K/mm3 (4.0-10.5)
[2017-10-12 03:42] LABS: NT PRO BNP 52.9 pg/mL (0-450)
[2017-10-12] MEDS ORDERED: Senokot-S Tablet PO PRN (04:29)
[2017-10-12] MEDS ORDERED: Zofran 4 MG/2 ML VIAL IV PRN (04:29)
[2017-10-12] MEDS ORDERED: MAALOX ES 30 ML UNIT DOSE PO PRN (04:29)
[2017-10-12] MEDS ORDERED: MILK OF MAGNESIA 30 ML PO PRN (04:29)
[2017-10-12] MEDS: TYLENOL 325 MG PO PRN ×2 (05:57→11:41)
--- NOTE | 2017-10-12 08:41 | PCM.SSS ---
History of Present Illness - Chief Complaint Chief Complaint: CP r/o History of Present Illness: is a 47 year old female pt of mine from [facility] who felt presyncopal x 2 yesterday and came to ER. Was also c/o L arm heaviness and chest pressure yesterday through the day. In the morning yesterday she felt like she was going to pass out so she went to lay down. Was just sitting having breakfast at the time. [place] better so went to work. [place] fine last night before bed. At 2 am she woke feeling like she was going to pass out, lightheaded, anxious, palms were "dripping with sweat," and chest pressure. She came to the ER. Initial labs and troponins were negative. She has had another troponin since then. She does continue to feel anxious. Pt has valium at home, did not take it because she was unsure if she could now that she's on viibryd. She has started viibyrd 5d ago and has some diarrhea with that. About 2 weeks ago she was in the shower, had a nosebleed then a syncopal episode. She had an echocardiogram yesterday subsequent to that episode. Pt has chronic history of hypokalemia and hypomagnesium with negative workup by cardiology and nephrology. - Review of Systems Respiratory: No Short Of Breath Cardiac: Chest Pain, Syncope (2 wks ago), No Edema, No Palpitations Abdominal/Gastrointestinal: Nausea, Diarrhea Musculoskeletal: Joint Pain (L shoulder pain) Psychological: Anxiety Hematologic/Lymphatic: Other (epistaxis 2 wks ago) Medications & Allergies Home Medications: Home Medication List Potassium Chloride 20 Meq Tab [Potassium Chloride 20 MEQ TABLET] 20 meq PO BID 03/18/14 [History Confirmed 10/12/17] Magnesium Oxide 400 mg [Mag-Ox 400] 400 mg PO DAILY 03/17/16 [History Confirmed 10/12/17] Vilazodone HCl [Viibryd] 10 mg PO DAILY 10/12/17 [History Confirmed 10/12/17] Allergies/Adverse Reactions: Allergies Allergy/AdvReac Type Severity Reaction Status Date / Time No Known Drug Allergies Allergy Verified 10/12/17 02:40 - Past Medical History Past Medical History: Yes Neurological History: No Pertinent History ENT History: No Pertinent History Cardiac History: Other Respiratory History: No Pertinent History Endocrine Medical History: No Pertinent History Musculoskelatal History: No Pertinent History GI Medical History: No Pertinent History History: No Pertinent History Pyscho-Social History: Anxiety Reproductive Disorders: No Pertinent History Comment: Low Potassium, mag see Saul for nephrolgist and David for cardiology. no dx of anxiety just feels anxious - Female History Hx Last Menstrual Period: menopausal Are you now?: No - Past Surgical History Past Surgical History: Yes Neuro Surgical History: No Pertinent History Cardiac History: No Pertinent History Respiratory Surgery: No Pertinent History GI Surgical History: No Pertinent History Genitourinary Surgical Hx: No Pertinent History Musculskeletal Surgical Hx: No Pertinent History Female Surgical History: Tubal Ligation Other Surgical History: tonsils - Social History Smoking Status: Never smoker Exposure to second hand smoke: No Alcohol: None Drug Use: none Significant Family History: no pertinent family hx - Physical Exam Vital Signs: Vital Signs - 24 hr Temp Pulse Pulse Resp BP Pulse Ox 10/12/17 07:39 98.2 F 63 18 131/74 97 10/12/17 05:13 97.9 F 62 18 167/88 98 10/12/17 04:15 99 10/12/17 03:50 66 16 163/99 100 10/12/17 03:22 99 10/12/17 03:03 74 16 155/95 97 10/12/17 02:25 97.8 F 68 64 18 161/120 99 Oxygen-Last 24 hours O2 Percentage 2 Liters = 28% O2 Percentage 2 Liters = 28% General Appearance: no apparent distress, alert Neurologic Exam: oriented x 3, cooperative Eye Exam: eyes nml inspection Ears, Nose, Throat Exam: moist mucous membranes Neck Exam: normal inspection, non-tender, supple, No lymphadenopathy Respiratory Exam: normal breath sounds, lungs clear, No crackles/rales, No rhonchi, No wheezing Cardiovascular Exam: regular rate/rhythm, normal heart sounds, No murmur Gastrointestinal/Abdomen Exam: soft, normal bowel sounds, No tenderness, No distention, No mass, No guarding, No rebound Back Exam: normal inspection, No rash Extremity Exam: normal inspection, No pedal edema, No swelling Skin Exam: normal color, warm, dry, No rash Results - Labs Lab/Micro Results: Lab Results-Last 24 Hours 10/12/17 Range/Units 06:19 Troponin I < 0.012 (0.000-0.034) ng/mL - Other Procedures and Tests Respiratory Therapy 10/12/17 10:30 EKG ROUTINE 10/13/17 05:00 EKG DAILY 10/14/17 05:00 EKG DAILY 10/15/17 05:00 EKG DAILY Assessment/Plan (1) Chest pain Current Visit: Yes Status: Acute Qualifiers: Chest pain type: other chest pain Qualified Code(s): R07.89 - Other chest pain; R07.8 - Other chest pain Assessment & Plan: Described as pressure, initial troponins are negative. Will discuss with Dr. Hernandez this morning. Code(s): R07.9 - CHEST PAIN, UNSPECIFIED (2) Hypokalemia Current Visit: No Status: Chronic Assessment & Plan: normal K+ here. Code(s): E87.6 - HYPOKALEMIA (3) Near syncope Current Visit: No Status: Acute Assessment & Plan: Also discussing with Dr. Hernandez. May be related to anxiety, but there is some concern of physiologic process with her previous syncope a few weeks ago ( though that may have been vagal). (4) Anxiety Current Visit: Yes Status: Chronic Assessment & Plan: will give small dose of ativan here. Instructed pt ok to take valium with viibryd if needed. Code(s): F41.9 - ANXIETY DISORDER, UNSPECIFIED Hospital Summary - Hospital Course Hospital Course: Pt admitted with presyncope, anxiety, and chest pressure. Troponins are negative so far. Labs are negative. BP in the 160s systolic. I will discuss with Dr. Hernandez today - would like for him to see her but he may want her to r/ o for [place] first. will try a small dose of ativan for anxiety. - Vitals & Intake/Output Vital Signs: Vital Signs Temperature 98.2 F 10/12/17 07:39 Pulse Rate 63 10/12/17 07:39 Respiratory Rate 18 10/12/17 07:39 Blood Pressure 131/74 10/12/17 07:39 O2 Sat by Pulse Oximetry 97 10/12/17 07:39 Oxygen-Last Documented O2 Percentage 2 Liters = 28% Intake & Output: Intake & Output 10/09/17 10/10/17 10/11/17 10/12/17 11:59 11:59 11:59 11:59 Weight 84 kg - Lab Result Diagrams: 10/12/17 03:00 10/12/17 03:00 Lab Results-Last 24 Hrs: Lab Results-Last 24 Hours 10/12/17 Range/Units 06:19 Troponin I < 0.012 (0.000-0.034) ng/mL - Procedures and Test Procedures and Tests throughout Hospitalization: Therapy Orders & Screens 10/12/17 10:30 EKG ROUTINE Comment: Diagnosis: chest pain 10/13/17 05:00 EKG DAILY Comment: Diagnosis: chest pain 10/14/17 05:00 EKG DAILY Comment: Diagnosis: chest pain 10/15/17 05:00 EKG DAILY Comment: Diagnosis: chest pain - Discharge Disposition: Home, Self-Care Condition: Stable Prescriptions: No Action Potassium Chloride 20 Meq Tab [Potassium Chloride 20 MEQ TABLET] 20 meq PO BID Magnesium Oxide 400 mg [Mag-Ox 400] 400 mg PO DAILY Vilazodone HCl [Viibryd] 10 mg PO DAILY Follow up with: PANCHITO LAM [Primary Care Provider] - 1 Week
[2017-10-12] MEDS ORDERED: Ativan 0.5 MG PO ONE (08:47)
--- NOTE | 2017-10-12 09:05 | XRAY ---
Indication: Chest tightness. Comparison: April 22, 2017. AP/lateral chest demonstrates again chronic right infrahilar atelectasis. Remaining heart, lungs, and bony thorax normal.
[2017-10-12] MEDS ORDERED: MAG-OX 400 PO SCH (10:00)
[2017-10-12] MEDS ORDERED: NON-FORMULARY ITEM (Potassium Chloride 20 Meq Tab [Potassium Chloride 20 Meq Tablet] 20 ME PO SCH (10:00)
[2017-10-12] MEDS ORDERED: Ecotrin 325 MG PO SCH (10:00)
[2017-10-12] MEDS ORDERED: Klor Con 10 MEQ PO SCH (11:15)
[2017-10-12] MEDS ORDERED: MEDICATION INTERVENTION MC SCH (11:15)
[2017-10-12 16:13] VITALS: BP 140/79; PULSE 67; O2SAT 98
== END 2017-10-12 17:00 | disposition home or self-care (01) ==
LOC: ED 02:18 → MED SURG 04:25
PROVIDERS: ADMIT Family Medicine; ATTEND Family Medicine
DX: R07.89 Other chest pain (principal); E87.6 Hypokalemia; R55 Syncope and collapse; F41.9 Anxiety disorder, unspecified
CPT/HCPCS: 36000; 36415; 71046; 80053; 83880; 84484; 85025; 93005; 93041; 93268; 96374; 99285; J2405; A9270-GY; G0378

== ENCOUNTER 2022-10-17 16:04 | Emergency (ER) | payer OTHER ==
--- NOTE | 2022-10-17 16:15 | ERPHSYRPT ---
- History of Present Illness Time Seen by Provider: 10/17/22 16:15 Source: patient, family Physician History: This is a 52-year-old white female has a history of hypertension, anxiety/depression, and low potassium and presents with chest tightness and shortness of breath on exertion that began yesterday evening and has persisted today. The patient does see a manager star, softball umpire and has a primary care provider that monitors her medical issues. She has not had a cough. She denies fever. She is under stress but not different than usual. She has no abdominal pain. She has had no vomiting or diarrhea. She noticed very localized superficial pain in the anterior aspect of her right thigh. In the past she was told that she had a "blood clot" and to make sure she monitors this. Timing/Duration: yesterday Activities at Onset: none Severity of Dyspnea-Max: mild Severity of Dyspnea-Current: mild Possible Cause: occasional episodes Modifying Factors: Improves With: activity Associated Symptoms: chest pain/discomfort (Described as tightness), dizziness (Single episode yesterday), tightness, No calf pain, No painful breathing Allergies/Adverse Reactions: No Known Drug Allergies Allergy (Verified 10/12/17 02:40) Home Medications: Potassium Chloride 20 Meq Tab [Potassium Chloride 20 MEQ TABLET] 20 meq PO BID 03/18/14 [History] Magnesium Oxide 400 mg [Mag-Ox 400] 400 mg PO DAILY 03/17/16 [History] Vilazodone HCl [Viibryd] 10 mg PO DAILY 10/12/17 [History] Hx Tetanus, Diphtheria Vaccination/Date Given: Yes (2012) Hx Influenza Vaccination/Date Given: Yes Hx Pneumococcal Vaccination/Date Given: No Travel Risk - International Travel Have you traveled outside of the country in past 3 weeks: No - Coronavirus Screening Are you exhibiting any of the following symptoms?: No Close contact with a COVID-19 positive Pt in past 14-21 Days: No - Review of Systems Constitutional: No Symptoms Eyes: No Symptoms Ears, Nose, & Throat: No Symptoms Respiratory: Dyspnea on Exertion (DIAZ) Cardiac: Chest Pain (Chest tightness) Abdominal/Gastrointestinal: No Symptoms Genitourinary Symptoms: No Symptoms Musculoskeletal: No Symptoms Skin: No Symptoms Neurological: No Symptoms Psychological: No Symptoms Endocrine: No Symptoms Hematologic/Lymphatic: No Symptoms Immunological/Allergic: No Symptoms All Other Systems: Reviewed and Negative - Past Medical History Pertinent Past Medical History: Yes Neurological History: No Pertinent History ENT History: No Pertinent History Cardiac History: High Cholesterol, Hypertension, Other Respiratory History: No Pertinent History Endocrine Medical History: No Pertinent History Musculoskeletal History: No Pertinent History GI Medical History: No Pertinent History History: No Pertinent History Psycho-Social History: Anxiety Female Reproductive Disorders: No Pertinent History Other Medical History: Low Potassium, mag see Saul for nephrolgist and Kabous for cardiology. no dx of anxiety just feels anxious - Past Surgical History Past Surgical History: Yes Neuro Surgical History: No Pertinent History Cardiac: No Pertinent History Respiratory: No Pertinent History Gastrointestinal: No Pertinent History Genitourinary: No Pertinent History Musculoskeletal: No Pertinent History Female Surgical History: Tubal Ligation Other Surgical History: tonsils,left foot - Social History Smoking Status: Never smoker Exposure to second hand smoke: No Alcohol Use: None Drug Use: none Patient Lives Alone: No Significant Family History: no pertinent family hx - Nursing Vital Signs Nursing Vital Signs: Initial Vital Signs Respiratory Rate 18 10/17/22 16:10 O2 Sat by Pulse Oximetry 97 10/17/22 16:10 Pain Scale Pain Intensity 2 - Physical Exam General Appearance: no apparent distress, alert, anxiety Eye Exam: PERRL/EOMI, eyes nml inspection Ears, Nose, Throat Exam: hearing grossly normal, normal ENT inspection, normal pharynx Neck Exam: normal inspection, non-tender, supple, full range of motion Respiratory Exam: normal breath sounds, lungs clear, airway intact, No chest tenderness, No respiratory distress Cardiovascular/Chest Exam: normal heart sounds, regular rate/rhythm, normal peripheral pulses Abdominal/Gastrointestinal Exam: soft, normal bowel sounds, No tenderness Rectal Exam: not done Extremity Exam: non-tender, normal range of motion, normal inspection, normal capillary refill, no calf tenderness, no pedal edema, pelvis stable Neurologic Exam: alert, oriented x 3, cooperative, power ballast machine operator II-XII nml as tested, normal mood/affect, nml cerebellar function, nml station & gait, sensation nml Skin Exam: normal color, warm, dry Lymphatic Exam: No adenopathy SpO2 Interpretation: normal SpO2: 97 O2 Delivery: Room Air - Course Nursing assessment & vital signs reviewed: Yes EKG Interpreted by Me: RATE (93), Sinus Rhythm (Borderline), Left [place] Deviation, NORMAL INTERVALS, NORMAL QRS, NORMAL ST-T, Other (No acute ischemic changes on today's twelve-lead EKG.) Ordered Tests: Active Orders 24 hr Category Date Time Status EKG-ER Only STAT Care 10/17/22 16:57 Active IV Insertion STAT Care 10/17/22 16:57 Active CHEST 1 VIEW (PORTABLE) Stat Exams 10/17/22 17:52 Taken CBC W DIFF Stat Lab 10/17/22 17:17 Completed CMP Stat Lab 10/17/22 17:17 Completed D-DIMER QUANTITATIVE Stat Lab 10/17/22 17:17 Completed NT PRO BNPII Stat Lab 10/17/22 17:17 Completed TROPONIN Q4H Lab 10/17/22 17:17 Completed TROPONIN Q4H Lab 10/17/22 21:00 Ordered TROPONIN Q4H Lab 10/18/22 01:00 Ordered Medication Summary Discontinued Medications Generic Name Dose Route Start Last Admin Trade Name Freq PRN Reason Stop Dose Admin Potassium Chloride 10 meq 10/17/22 17:54 10/17/22 18:11 Potassium Chloride Tab 10 Meq Tab PO 10/17/22 17:55 10 meq STAT ONE Administration Potassium Chloride Confirm 10/17/22 18:10 Potassium Chloride Tab 10 Meq Tab Administered 10/17/22 18:11 Dose 10 meq PO .STK-MED ONE Lab/Rad Data: Laboratory Result Diagrams 10/17/22 17:17 10/17/22 17:17 Laboratory Results 10/17/22 10/17/22 10/17/22 Range/Units 17:17 17:17 17:17 WBC (4.0-10.5) x10^3/uL RBC (4.1-5.4) x10^6/uL Hgb (12.0-16.0) g/dL Hct (35-47) % MCV (78-100) fL MCH (26-32) pg MCHC (32-36) g/dL RDW (11.5-14.0) % Plt Count (150-450) x10^3/uL MPV (7.5-11.0) fL Gran % (36.0-66.0) % Immature Gran % (Auto) (0.00-0.4) % Nucleat RBC Rel Count (0.00-0.1) % Eos # (Auto) (0-0.5) x10^3/uL Immature Gran # (Auto) (0.00-0.03) x10^3u/L Absolute Lymphs (auto) (1.0-4.6) x10^3/uL Absolute Monos (auto) (0.0-1.3) x10^3/uL Absolute Nucleated RBC (0.00-0.01) x10^3u/L Lymphocytes % (24.0-44.0) % Monocytes % (0.0-12.0) % Eosinophils % (0.00-5.0) % Basophils % (0.0-0.4) % Absolute Granulocytes (1.4-6.9) x10^3/uL Basophils # (0-0.4) x10^3/uL D-Dimer 0.50 (0.0-0.50) mg/L Sodium 140 (137-145) mmol/L Potassium 3.3 L (3.5-5.1) mmol/L Chloride 102 (98-107) mmol/L Carbon Dioxide 29 (22-30) mmol/L Anion Gap 13.0 (5-15) MEQ/L BUN 17 (7-17) mg/dL Creatinine 0.74 (0.52-1.04) mg/dL Estimated GFR > 60.0 ML/MIN Glucose 127 H (74-106) mg/dL Calcium 9.2 (8.4-10.2) mg/dL Total Bilirubin 0.30 (0.2-1.3) mg/dL AST 26 (14-36) U/L ALT 19 (0-35) U/L Alkaline Phosphatase 110 (38-126) U/L Troponin I < 0.012 (0.000-0.034) ng/mL NT-Pro-B Natriuret Pep 46.7 (<300) pg/mL Serum Total Protein 7.0 (6.3-8.2) g/dL Albumin 4.0 (3.5-5.0) g/dL 10/17/22 Range/Units 17:17 WBC 8.7 (4.0-10.5) x10^3/uL RBC 4.02 L (4.1-5.4) x10^6/uL Hgb 11.6 L (12.0-16.0) g/dL Hct 35.8 (35-47) % MCV 89.1 (78-100) fL MCH 28.9 (26-32) pg MCHC 32.4 (32-36) g/dL RDW 13.5 (11.5-14.0) % Plt Count 250 (150-450) x10^3/uL MPV 8.4 (7.5-11.0) fL Gran % 66.2 H (36.0-66.0) % Immature Gran % (Auto) 0.2 (0.00-0.4) % Nucleat RBC Rel Count 0.0 (0.00-0.1) % Eos # (Auto) 0.07 (0-0.5) x10^3/uL Immature Gran # (Auto) 0.02 (0.00-0.03) x10^3u/L Absolute Lymphs (auto) 2.30 (1.0-4.6) x10^3/uL Absolute Monos (auto) 0.52 (0.0-1.3) x10^3/uL Absolute Nucleated RBC 0.00 (0.00-0.01) x10^3u/L Lymphocytes % 26.5 (24.0-44.0) % Monocytes % 6.0 (0.0-12.0) % Eosinophils % 0.8 (0.00-5.0) % Basophils % 0.3 (0.0-0.4) % Absolute Granulocytes 5.73 (1.4-6.9) x10^3/uL Basophils # 0.03 (0-0.4) x10^3/uL D-Dimer (0.0-0.50) mg/L Sodium (137-145) mmol/L Potassium (3.5-5.1) mmol/L Chloride (98-107) mmol/L Carbon Dioxide (22-30) mmol/L Anion Gap (5-15) MEQ/L BUN (7-17) mg/dL Creatinine (0.52-1.04) mg/dL Estimated GFR ML/MIN Glucose (74-106) mg/dL Calcium (8.4-10.2) mg/dL Total Bilirubin (0.2-1.3) mg/dL AST (14-36) U/L ALT (0-35) U/L Alkaline Phosphatase (38-126) U/L Troponin I (0.000-0.034) ng/mL NT-Pro-B Natriuret Pep (<300) pg/mL Serum Total Protein (6.3-8.2) g/dL Albumin (3.5-5.0) g/dL - Progress Progress: improved, re-examined Air Movement: good Progress Note: 10/17/22 17:59 This patient's medical issue is 1 of moderate complexity. The level of complexity and the work-up performed is based on review of the patient's past medical history, review of the patient's medication list, review of the patient's drug allergy list, history of present illness and physical findings on examination. The work-up includes twelve-lead EKG, CBC, D-dimer, troponin level, CMP and BNP as well as a chest x-ray. We are awaiting the chest x-ray results. The potassium level was 3.3. We will provide the patient with 10 mEq of potassium orally. She will continue her medication as prescribed and follow- up with her primary care physician, manager star and softball umpire for further evaluation and management. 10/17/22 18:24 Chest x-ray was interpreted by me. The right lower lobe appears to possibly have atelectasis versus technique. No definite infiltrate or other acute c ardiopulmonary process present. Blood Culture(s) Obtained: No Antibiotics given: No Counseled pt/family regarding: lab results, diagnosis, need for follow-up, rad results Medical Desision Making - Diagnostic Testing Diagnostic test were ordered, analyzed, and reviewed by me: Yes Radiological Interpretation: Interpreted by me - Risk of complications Minimal Risk: Minimal risk of morbidity - Departure Departure Disposition: Home Clinical Impression: Feeling of chest tightness, Shortness of breath, Hypokalemia Condition: Stable Critical Care Time: No Referrals: PANCHITO PILLAI [Primary Care Provider] - Follow up/PCP as directed Additional Instructions: Take all your medications as prescribed. Call your primary care provider, manager star and softball umpire on 10/19/2022 to make arrangements for follow-up to be seen within the next 5 to 7 days.
[2022-10-17 17:20] LABS: Absolute Neutrophil Ct (ANC) 5.73 x10^3/uL (1.4-6.9); BASOPHIL % 0.3 % (0.0-0.4); Basophil (Absolute #) 0.03 x10^3/uL (0-0.4); Eosinophil % 0.8 % (0.00-5.0); Eosinophil (Absolute #) 0.07 x10^3/uL (0-0.5); Hematocrit 35.8 % (35-47); Hemoglobin 11.6 g/dL (12.0-16.0); IMMATURE GRAN # 0.02 x10^3u/L (0.00-0.03); IMMATURE GRAN % 0.2 % (0.00-0.4); Lymphocytes % 26.5 % (24.0-44.0); Mean Cell Volume 89.1 fL (78-100); Mean Corpuscular Hemoglobin 28.9 pg (26-32); Mean Corpuscular Hgb Concent. 32.4 g/dL (32-36); Mean Platelet Volume 8.4 fL (7.5-11.0); Monocyte (Absolute #) 0.52 x10^3/uL (0.0-1.3); Neutrophil % 66.2 % (36.0-66.0); Platelet Count 250 x10^3/uL (150-450); Red Blood Count 4.02 x10^6/uL (4.1-5.4); Red Cell Distribution Width 13.5 % (11.5-14.0); White Blood Count 8.7 x10^3/uL (4.0-10.5)
[2022-10-17 17:43] LABS: ALKALINE PHOSPHATASE 110 U/L (38-126); BLOOD UREA NITROGEN 17 mg/dL (7-17); CHLORIDE 102 mmol/L (98-107); Calcium 9.2 mg/dL (8.4-10.2); Carbon Dioxide 29 mmol/L (22-30); Creatinine 1 0.74 mg/dL (0.52-1.04); EST GLOMERULAR FILTRATION RATE > 60.0 ML/MIN; Glucose 127 mg/dL (74-106); Potassium 3.3 mmol/L (3.5-5.1); SGOT/AST 26 U/L (14-36); SGPT/ALT 19 U/L (0-35); SODIUM 140 mmol/L (137-145)
[2022-10-17 17:45] LABS: NT PRO BNPII 46.7 pg/mL (<300); TROPONIN < 0.012 ng/mL (0.000-0.034)
[2022-10-17] MEDS ORDERED: Klor Con PO ONE ×2 (17:54→18:10)
[2022-10-17 18:15] VITALS: BP 138/88; PULSE 77
[2022-10-17 18:26] VITALS: O2SAT 97
--- NOTE | 2022-10-17 20:36 | XRAY ---
Indication: Short of breath and chest tightness. Comparison: October 12, 2017 Portable chest again demonstrates CT proven prominent bilateral pericardiac fat. Remaining lungs clear. Bony thorax intact. No new/acute findings.
== END 2022-10-17 18:43 | disposition home or self-care (01) ==
LOC: ED 16:04
DX: R07.89 Other chest pain (principal); R06.02 Shortness of breath; E87.6 Hypokalemia; E78.5 Hyperlipidemia, unspecified; I10 Essential (primary) hypertension; Z79.899 Other long term (current) drug therapy; Z20.828 Contact with and (suspected) exposure to other viral communicable diseases
CPT/HCPCS: 36415; 71045; 80053; 83880; 84484; 85025; 85379; 93005; 99284; A9270-GY

== ENCOUNTER 2023-06-03 01:32 | Observation (INO) | payer OTHER ==
[2023-06-03 02:13] LABS: Absolute Neutrophil Ct (ANC) 6.44 x10^3/uL (1.4-6.9); BASOPHIL % 0.4 % (0.0-0.4); Basophil (Absolute #) 0.05 x10^3/uL (0-0.4); Eosinophil % 1.1 % (0.00-5.0); Eosinophil (Absolute #) 0.13 x10^3/uL (0-0.5); Hematocrit 41.3 % (35-47); Hemoglobin 13.6 g/dL (12.0-16.0); IMMATURE GRAN # 0.03 x10^3u/L (0.00-0.03); IMMATURE GRAN % 0.2 % (0.00-0.4); Lymphocytes % 40.6 % (24.0-44.0); Mean Cell Volume 87.1 fL (78-100); Mean Corpuscular Hemoglobin 28.7 pg (26-32); Mean Corpuscular Hgb Concent. 32.9 g/dL (32-36); Mean Platelet Volume 8.7 fL (7.5-11.0); Monocyte (Absolute #) 0.67 x10^3/uL (0.0-1.3); Monocytes % 5.4 % (0.0-12.0); Neutrophil % 52.3 % (36.0-66.0); Platelet Count 319 x10^3/uL (150-450); Red Blood Count 4.74 x10^6/uL (4.1-5.4); Red Cell Distribution Width 13.5 % (11.5-14.0); White Blood Count 12.3 x10^3/uL (4.0-10.5)
--- NOTE | 2023-06-03 02:13 | ERPHSYRPT ---
- History of Present Illness Time Seen by Provider: 06/03/23 01:40 Historian: patient Exam Limitations: no limitations Patient Subjective Stated Complaint: Chest pain and SOB since 1800 today. Pain radiating into back. Pain comes and goes. Triage Nursing Assessment: Patient states having chest pain since 1800. States that when the pain hits, she feels SOB. Pain is radiating into her back area. Took some Pepto at home with no relief. Physician History: Patient is a 53-year-old female presents to the emergency department for evaluation of chest pain. Chest pain is associated with shortness of breath. Patient reports her chest pain started approximately 1800. Pain tends to radiate to her back. No trauma no fever. No nausea vomiting or diaphoresis. Symptoms are moderate in intensity. No specific worsening or improving factors however patient does report that chest pain seems to improve somewhat when she sits upright. Patient took Pepto-Bismol without any significant relief. Patient reports she has a history of hypokalemia. Patient has been taking her potassium as recommended. Patient had similar chest pain in October. Patient was found to be hypokalemic at that time she is concerned that she may be hypokalemic at this time. Patient otherwise feels well. She voices no other complaints or concerns at this time. Portions of this note were created with voice recognition technology. There may be grammatical, spelling, punctuation or sound alike errors Timing/Duration: today Activities at Onset: none Quality: aching Location: substernal Chest Pain Radiation: back Severity of Pain-Max: moderate Severity of Pain-Current: mild Modifying Factors: Improves With: nothing Associated Symptoms: shortness of breath Nitro Today/Relief: no nitro taken today Aspirin Treatment Today: no aspirin today Allergies/Adverse Reactions: vilazodone [From Viibryd] Allergy (Severe, Verified 06/03/23 01:38) Difficulty Swallowing Home Medications: Potassium Chloride 20 Meq Tab [Potassium Chloride 20 MEQ TABLET] 20 meq PO BID 03/18/14 [History] Magnesium Oxide 400 mg [Mag-Ox 400] 400 mg PO DAILY 03/17/16 [History] Hx Tetanus, Diphtheria Vaccination/Date Given: Yes (2012) Hx Influenza Vaccination/Date Given: Yes Hx Pneumococcal Vaccination/Date Given: No Immunizations Up to Date: Yes Travel Risk - International Travel Have you traveled outside of the country in past 3 weeks: No - Coronavirus Screening Are you exhibiting any of the following symptoms?: No Close contact with a COVID-19 positive Pt in past 14-21 Days: No - Vaccine Status Have you recieved a Covid-19 vaccination: Yes [employer]: Pfizer - Vaccination Dates Date of 2cond Vaccination (if applicable): 07/22/20 - Review of Systems Constitutional: No Symptoms, No Fever, No Chills Eyes: No Symptoms Ears, Nose, & Throat: No Symptoms Respiratory: No Symptoms, No Cough, No Dyspnea Cardiac: No Symptoms, No Chest Pain, No Edema, No Syncope Abdominal/Gastrointestinal: No Symptoms, No Abdominal Pain, No Nausea, No Vomiting, No Diarrhea Genitourinary Symptoms: No Symptoms, No Dysuria Musculoskeletal: No Symptoms, No Back Pain, No Neck Pain Skin: No Symptoms, No Rash Neurological: No Symptoms, No Dizziness, No Focal Weakness, No Sensory Changes Psychological: No Symptoms Endocrine: No Symptoms Hematologic/Lymphatic: No Symptoms Immunological/Allergic: No Symptoms All Other Systems: Reviewed and Negative - Past Medical History Pertinent Past Medical History: Yes Neurological History: No Pertinent History ENT History: No Pertinent History Cardiac History: Arrhythmia, Deep Vein Thrombosis, High Cholesterol, Hypertension, Other Respiratory History: No Pertinent History Endocrine Medical History: No Pertinent History Musculoskeletal History: No Pertinent History GI Medical History: No Pertinent History, GERD, Hemorrhoids History: No Pertinent History Psycho-Social History: Anxiety Female Reproductive Disorders: No Pertinent History Other Medical History: Low Potassium, mag see Saul for nephrolgist and David for cardiology. no dx of anxiety just feels anxious - Past Surgical History Past Surgical History: Yes Neuro Surgical History: No Pertinent History Cardiac: No Pertinent History Respiratory: No Pertinent History Gastrointestinal: No Pertinent History Genitourinary: No Pertinent History Musculoskeletal: No Pertinent History Female Surgical History: Tubal Ligation Other Surgical History: tonsils,left foot - Social History Smoking Status: Never smoker Exposure to second hand smoke: No Alcohol Use: None Drug Use: none Patient Lives Alone: No Significant Family History: no pertinent family hx - Nursing Vital Signs Nursing Vital Signs: Initial Vital Signs Temperature 97.8 F 06/03/23 01:33 Pulse Rate 92 H 06/03/23 01:33 Respiratory Rate 20 06/03/23 01:33 Blood Pressure 146/93 06/03/23 01:33 O2 Sat by Pulse Oximetry 99 06/03/23 01:33 Pain Scale Pain Intensity 3 - Physical Exam General Appearance: no apparent distress, alert Eye Exam: PERRL/EOMI, eyes nml inspection Ears, Nose, Throat Exam: normal ENT inspection, moist mucous membranes Neck Exam: normal inspection, non-tender, supple, full range of motion Respiratory Exam: normal breath sounds, lungs clear, No respiratory distress Cardiovascular Exam: regular rate/rhythm, normal heart sounds, normal peripheral pulses Gastrointestinal/Abdomen Exam: soft, No tenderness, No mass Back Exam: normal inspection, No CVA tenderness, No vertebral tenderness Extremity Exam: normal inspection, normal range of motion Neurologic Exam: alert, oriented x 3, cooperative, normal mood/affect, sensation nml, No motor deficits Skin Exam: normal color, warm, dry Lymphatic Exam: No adenopathy SpO2 Interpretation: normal SpO2: 96 O2 Delivery: Room Air - Course Nursing assessment & vital signs reviewed: Yes EKG Interpreted by Me: RATE (76), Sinus Rhythm, NORMAL AXIS, NORMAL INTERVALS - Radiology Exams Chest X-ray Interpretation: Teleradiologist Report (Bilateral lower lung zones pericardiac patchy opacities that could represent primary at cardiophrenic fat pad to yet inflammatory process cannot be excluded. Mild bilateral hilar and bronchial thickening) Ordered Tests: Active Orders 24 hr Category Date Time Status Investigation Specialist STAT Care 06/03/23 01:58 Active EKG-ER Only STAT Care 06/03/23 01:57 Active IV Insertion STAT Care 06/03/23 01:57 Active Pulse Oximetry (ED) STAT Care 06/03/23 01:57 Active CHEST 1 VIEW (PORTABLE) Stat Exams 06/03/23 03:03 Taken CHEST WITH CONTRAST [CT] Stat Exams 06/03/23 05:48 Completed CBC W DIFF Stat Lab 06/03/23 02:00 Completed CMP Stat Lab 06/03/23 02:00 Completed D-DIMER QUANTITATIVE Stat Lab 06/03/23 02:00 Completed MAGNESIUM Stat Lab 06/03/23 03:29 Completed TROPONIN Q4H Lab 06/03/23 02:00 Completed TROPONIN Q4H Lab 06/03/23 04:35 Completed TROPONIN Q4H Lab 06/03/23 10:00 Ordered Transfer Order Routine Transfer 06/03/23 Ordered Medication Summary Discontinued Medications Generic Name Dose Route Start Last Admin Trade Name Freq PRN Reason Stop Dose Admin Aspirin 324 mg 06/03/23 03:32 06/03/23 03:36 Aspirin 81 Mg Tab.Chew PO 06/03/23 03:33 324 mg STAT ONE Administration Aspirin Confirm 06/03/23 03:34 Aspirin 81 Mg Tab.Chew Administered 06/03/23 03:35 Dose 324 mg .ROUTE .STK-MED ONE Pantoprazole Sodium 40 mg 06/03/23 03:52 06/03/23 03:55 Protonix (Pantoprazole) 40 Mg Tablet PO 06/03/23 03:53 40 mg STAT ONE Administration Pantoprazole Sodium Confirm 06/03/23 03:54 Protonix (Pantoprazole) 40 Mg Tablet Administered 06/03/23 03:55 Dose 40 mg .ROUTE .STK-MED ONE Potassium Chloride 40 meq 06/03/23 03:31 06/03/23 03:36 Potassium Chloride Tab 10 Meq Tab PO 06/03/23 03:32 40 meq STAT ONE Administration Potassium Chloride Confirm 06/03/23 03:34 Potassium Chloride Tab 10 Meq Tab Administered 06/03/23 03:35 Dose 40 meq PO .STK-MED ONE Potassium Chloride Confirm 06/03/23 03:42 Potassium Chloride Tab 10 Meq Tab Administered 06/03/23 03:43 Dose 10 meq PO .STK-MED ONE Lab/Rad Data: Laboratory Result Diagrams 06/03/23 02:00 06/03/23 02:00 Laboratory Results 06/03/23 06/03/23 06/03/23 Range/Units 04:35 03:29 02:00 WBC (4.0-10.5) x10^3/uL RBC (4.1-5.4) x10^6/uL Hgb (12.0-16.0) g/dL Hct (35-47) % MCV (78-100) fL MCH (26-32) pg MCHC (32-36) g/dL RDW (11.5-14.0) % Plt Count (150-450) x10^3/uL MPV (7.5-11.0) fL Gran % (36.0-66.0) % Immature Gran % (Auto) (0.00-0.4) % Nucleat RBC Rel Count (0.00-0.1) % Eos # (Auto) (0-0.5) x10^3/uL Immature Gran # (Auto) (0.00-0.03) x10^3u/L Absolute Lymphs (auto) (1.0-4.6) x10^3/uL Absolute Monos (auto) (0.0-1.3) x10^3/uL Absolute Nucleated RBC (0.00-0.01) x10^3u/L Lymphocytes % (24.0-44.0) % Monocytes % (0.0-12.0) % Eosinophils % (0.00-5.0) % Basophils % (0.0-0.4) % Absolute Granulocytes (1.4-6.9) x10^3/uL Basophils # (0-0.4) x10^3/uL D-Dimer (0.0-0.50) mg/L Sodium (137-145) mmol/L Potassium (3.5-5.1) mmol/L Chloride (98-107) mmol/L Carbon Dioxide (22-30) mmol/L Anion Gap (5-15) MEQ/L BUN (7-17) mg/dL Creatinine (0.52-1.04) mg/dL Estimated GFR ML/MIN Glucose (74-106) mg/dL Calcium (8.4-10.2) mg/dL Magnesium 2.0 (1.6-2.3) mg/dL Total Bilirubin (0.2-1.3) mg/dL AST (14-36) U/L ALT (0-35) U/L Alkaline Phosphatase (38-126) U/L Troponin I < 0.012 < 0.012 (0.000-0.034) ng/mL Serum Total Protein (6.3-8.2) g/dL Albumin (3.5-5.0) g/dL 06/03/23 06/03/23 06/03/23 Range/Units 02:00 02:00 02:00 WBC 12.3 H (4.0-10.5) x10^3/uL RBC 4.74 (4.1-5.4) x10^6/uL Hgb 13.6 (12.0-16.0) g/dL Hct 41.3 (35-47) % MCV 87.1 (78-100) fL MCH 28.7 (26-32) pg MCHC 32.9 (32-36) g/dL RDW 13.5 (11.5-14.0) % Plt Count 319 (150-450) x10^3/uL MPV 8.7 (7.5-11.0) fL Gran % 52.3 (36.0-66.0) % Immature Gran % (Auto) 0.2 (0.00-0.4) % Nucleat RBC Rel Count 0.0 (0.00-0.1) % Eos # (Auto) 0.13 (0-0.5) x10^3/uL Immature Gran # (Auto) 0.03 (0.00-0.03) x10^3u/L Absolute Lymphs (auto) 5.00 H (1.0-4.6) x10^3/uL Absolute Monos (auto) 0.67 (0.0-1.3) x10^3/uL Absolute Nucleated RBC 0.00 (0.00-0.01) x10^3u/L Lymphocytes % 40.6 (24.0-44.0) % Monocytes % 5.4 (0.0-12.0) % Eosinophils % 1.1 (0.00-5.0) % Basophils % 0.4 (0.0-0.4) % Absolute Granulocytes 6.44 (1.4-6.9) x10^3/uL Basophils # 0.05 (0-0.4) x10^3/uL D-Dimer 0.32 (0.0-0.50) mg/L Sodium 134 L (137-145) mmol/L Potassium 3.4 L (3.5-5.1) mmol/L Chloride 99 (98-107) mmol/L Carbon Dioxide 22 (22-30) mmol/L Anion Gap 16.2 H (5-15) MEQ/L BUN 13 (7-17) mg/dL Creatinine 0.66 (0.52-1.04) mg/dL Estimated GFR 104.2 ML/MIN Glucose 109 H (74-106) mg/dL Calcium 9.6 (8.4-10.2) mg/dL Magnesium (1.6-2.3) mg/dL Total Bilirubin 0.20 (0.2-1.3) mg/dL AST 29 (14-36) U/L ALT 17 (0-35) U/L Alkaline Phosphatase 135 H (38-126) U/L Troponin I (0.000-0.034) ng/mL Serum Total Protein 8.0 (6.3-8.2) g/dL Albumin 4.7 (3.5-5.0) g/dL - Progress Progress: improved Air Movement: good Progress Note: heart score of 4 06/03/23 07:01 53-year-old female presents to our ED for evaluation of chest pain. Chest pain awoke patient from sleep last night. Pain described as a ache that is substernal. No radiation. Pain associated with shortness of breath. Patient took Pepto-Bismol with no significant relief. EKG reveals a normal sinus rhythm. Chest x-ray was abnormal. The radiologist felt there was a need for CT chest. CT chest, pleated. Results pending. CBC essentially nonremarkable. CMP reveals a hypokalemia at 3.4. Oral potassium administered. D-dimer negative. Troponin negative. Patient received chewable aspirin and pantopra zole. Patient's heart score is a 4. CTA chest results pending. Patient will be admitted to Dr. Hurley hospitalist for cardiac rule out. Plan of care discussed with patient. She agrees to admission at [facility] for further evaluation and treatment. CT chest with contrast shows no abnormalities Portions of this note were created with voice recognition technology. There may be grammatical, spelling, punctuation or sound alike errors Complexity problem addressed is moderate acute complicated No critical care time Complexity of data reviewed and analyzed is extensive. Test ordered test reviewed. Results analyzed and correlated clinically with history and physical exam. Management discussed with hospitalist who accepts admission to observation. Risk complication and a risk morbidity/mortality patient management is high. Patient requires hospitalization for further evaluation and treatment. MERLE PM (risk of complications and or M&M of patient management) -Therapeutic interventions like immediate treatment, medication IM/IV/SQ controlled meds/-benzos/narcotics, nebulizer treatment, IVF, Blood transfusion, (any response to care), -Referrals, consults, discussion with admitting MD -Procedures (CPR, intubation, lac repair), offered, considered, performed, risks/benefits explained to patient, comorbidity effects -State potential risks of meds (blood thinners, anti-arrhythmics, insulin, blood transfusion reaction) -Prescription drugs. (including considered and or offered and why) -State any therapies considered or offered and why Minimal risk-superficial dressings, slings, gargle Low Risk-minor sx (lac repair), PT/OT (walk pt), IVF Moderate Risk-prescriptions, I&D, surgical decisions, Treatment limited by SDOH High Risk- IV/IM/SQ controlled meds, meds requiring monitoring, hospitalization, Nebulizer rx. DNR decision. Case discussed with at 7:20 AM who accepts admission. Vital stable. Time spent to admit patient is approximately 15 minutes. Plan of care established for shared decision making. Blood Culture(s) Obtained: No Antibiotics given: No Counseled pt/family regarding: lab results, diagnosis, need for follow-up, rad results - Departure Departure Disposition: Observation Clinical Impression: Chest pain, Hypokalemia, ACS (acute coronary syndrome) Condition: Stable Critical Care Time: No Referrals: DOCTOR,NO FAMILY [Primary Care Provider] - Follow up/PCP as directed
[2023-06-03 02:26] LABS: ALBUMIN 4.7 g/dL (3.5-5.0); ANION GAP 16.2 MEQ/L (5-15); BILIRUBIN,TOTAL 0.2 mg/dL (0.2-1.3); Calcium 9.6 mg/dL (8.4-10.2); Creatinine 1 0.66 mg/dL (0.52-1.04); EST GLOMERULAR FILTRATION RATE 104.2 ML/MIN; Potassium 3.4 mmol/L (3.5-5.1)
[2023-06-03] MEDS ORDERED: Klor Con PO ONE ×3 (03:31→03:42)
[2023-06-03] MEDS ORDERED: BABY ASPIRIN 81 MG CHEW PO ONE (03:32)
[2023-06-03] MEDS ORDERED: BABY ASPIRIN 81 MG CHEW ONE (03:34)
[2023-06-03] MEDS ORDERED: Protonix 40MG Tablet PO ONE (03:52)
[2023-06-03] MEDS ORDERED: Protonix 40MG Tablet ONE (03:54)
--- NOTE | 2023-06-03 07:09 | XRAY ---
CLINICAL HISTORY:pain, abnormal CT chest COMPARISON:The X-ray study dated 06/03/2023 02:08:24 LEVEL VIAL GRINDER was reviewed. TECHNIQUE:Axial CT images of the chest were acquired with the administration of intravenous contrast. Coronal and sagittal reconstructions were obtained. FINDINGS: The scanned pulmonary parenchyma shows no definite consolidative lesions. Right lung middle lobe medial segment and to less exttent lingular subsgemnetal atelectatic chnages. Left lung upper lobe anterior segment subpleural reticular opacity with few calcific foci therein likely old granulomatous. Right lung upper lobe anterior segment calcified nodule measures 3.5 mm likely old granulomatous. Right lung lower lobe superior segment bennett-fissural nodular density about 3.8 mm likely fibrotic band. Bilateral lungs lower lobes subpleural thin linear atelectatic bands. Patent pulmonary artery and its main branches. No intraluminal obvious thromboemboli. No free or encysted pleural effusion. No pneumothorax was seen. Heart size is normal, and there is no pericardial effusion. Few subcentimetric bilateral hilar calcified lymph nodes. No pathologically enlarged mediastinal or axillary lymph node was identified. There is no definite mass lesion in the chest wall. Degenerative changes of the scanned spine. The scanned upper abdomen shows tiny splenic calcific foci likely old granulomas. IMPRESSION: 1. No acute abnormality was seen. Electronically Signed by: Rachael Elliott MD. (06/03/2023 07:05:13 EST)
[2023-06-03] MEDS: TYLENOL 325 MG PO PRN ×2 (12:38→21:23)
--- NOTE | 2023-06-03 12:40 | PCM.HP ---
History of Present Illness - Chief Complaint Chief Complaint: chest pain Date: 06/03/23 History of Present Illness: is a 53 year old female with a pmhx of DVT, arrythmia, HLD, HTN, and GERD who presented 06/03/23 to ED with complaints of chest pain. Patient reports the onset of the pain was around 1800 on 06/02/23. The pain intermittent with duration of 10-20 minutes about every hour, is substernal and initially radiated to her back. She describes the pain as crushing, pressure-like pain that is relieved with sitting up. She did some associated shortness of breath and two episodes of diarrhea. No aggravating factors. During interview, pain has resided some, now aching in characteristic with some slight heaviness. She follows with Dr. Hernandez outpatient and had a recent echo in November 2022 as well as a stress test with unremarkable findings. In ED, patient was slightly hypertensive at 146/93 otherwise vitals signs are unremarkable. EKG with NS. CT of the chest showing no acute abnormalities. Lab findings remarkable for WBC at 12.3, sodium at 134, potassium at 3.4, Alk phos at 135, and GAP at 16.2. Patient was given 324mg ASA, protonix, and potassium. - Review of Systems Constitutional: No Symptoms Eyes: No Symptoms Ears, Nose, & Throat: No Symptoms Respiratory: Short Of Breath Cardiac: Chest Pain Abdominal/Gastrointestinal: Diarrhea ( x 2 episodes) Genitourinary Symptoms: No Symptoms Musculoskeletal: Back Pain (mid back) Skin: No Symptoms Neurological: No Symptoms Psychological: No Symptoms Endocrine: No Symptoms Medications & Allergies Home Medications: Home Medication List Potassium Chloride 20 Meq Tab [Potassium Chloride 20 MEQ TABLET] 20 meq PO BID 03/18/14 [History Confirmed 06/03/23] Magnesium Oxide 400 mg [Mag-Ox 400] 400 mg PO DAILY 03/17/16 [History Confirmed 06/03/23] Diazepam [Valium] 2 mg PO DAILY PRN #30 tablet 10/12/17 [Rx Confirmed 06/03/23] Omeprazole 20 MG [Prilosec 20 mg] 20 mg PO DAILY #60 capsule. 10/12/17 [Rx Confirmed 06/03/23] Lisinopril 5 mg [Zestril 5 MG] 5 mg PO DAILY 06/03/23 [History Confirmed 06/03/23] Pravastatin Sodium 40 mg PO DAILY 06/03/23 [History Confirmed 06/03/23] Allergies/Adverse Reactions: Allergies Allergy/AdvReac Type Severity Reaction Status Date / Time vilazodone [From Viibryd] Allergy Severe Difficulty Verified 06/03/23 09:17 Swallowing - Past Medical History Past Medical History: Yes Neurological History: No Pertinent History ENT History: No Pertinent History Cardiac History: Arrhythmia, Deep Vein Thrombosis, High Cholesterol, Hypertension, Other Respiratory History: No Pertinent History Endocrine Medical History: No Pertinent History Musculoskelatal History: No Pertinent History GI Medical History: No Pertinent History, GERD, Hemorrhoids History: No Pertinent History Pyscho-Social History: Anxiety Reproductive Disorders: No Pertinent History Comment: Low Potassium, mag see Saul for nephrolgist and David for cardiology. no dx of anxiety just feels anxious - Female History Are you now?: No - Past Surgical History Past Surgical History: Yes Neuro Surgical History: No Pertinent History Cardiac History: No Pertinent History Respiratory Surgery: No Pertinent History GI Surgical History: No Pertinent History Genitourinary Surgical Hx: No Pertinent History Musculskeletal Surgical Hx: No Pertinent History Female Surgical History: Tubal Ligation Other Surgical History: tonsils, left foot, tubal ligation - Social History Smoking Status: Never smoker Exposure to second hand smoke: No Alcohol: None Drug Use: none Significant Family History: no pertinent family hx - Physical Exam Vital Signs: Vital Signs - 24 hr Temp Pulse Pulse Resp BP BP Pulse Ox 06/03/23 08:58 98 06/03/23 08:37 96.6 F 67 16 133/75 06/03/23 08:26 96.6 F 67 16 133/75 06/03/23 08:00 70 18 134/87 97 06/03/23 07:30 87 15 126/82 95 06/03/23 07:28 96 06/03/23 07:00 76 15 124/80 96 06/03/23 06:30 78 13 132/85 97 06/03/23 06:22 75 15 145/80 96 06/03/23 05:30 74 15 104/74 93 L 06/03/23 05:00 75 13 114/76 93 L 06/03/23 04:30 69 15 130/81 95 06/03/23 04:00 75 21 125/82 98 06/03/23 03:30 73 12 125/77 95 06/03/23 03:00 78 16 127/77 93 L 06/03/23 02:30 76 17 133/83 94 L 06/03/23 02:00 78 18 154/89 95 06/03/23 01:57 96 06/03/23 01:33 97.8 F 92 H 98 H 20 146/93 99 General Appearance: no apparent distress Neurologic Exam: alert, oriented x 3, cooperative Eye Exam: PERRL/EOMI Ears, Nose, Throat Exam: normal ENT inspection Neck Exam: normal inspection Respiratory Exam: normal breath sounds, lungs clear Cardiovascular Exam: regular rate/rhythm, normal heart sounds Gastrointestinal/Abdomen Exam: soft, normal bowel sounds Pelvic Exam: not done Rectal Exam: deferred Back Exam: normal inspection Extremity Exam: normal inspection Skin Exam: normal color Results - Labs Lab/Micro Results: Lab Results-Last 24 Hours 06/03/23 06/03/23 06/03/23 Range/Units 02:00 02:00 02:00 WBC 12.3 H (4.0-10.5) x10^3/uL RBC 4.74 (4.1-5.4) x10^6/uL Hgb 13.6 (12.0-16.0) g/dL Hct 41.3 (35-47) % MCV 87.1 (78-100) fL MCH 28.7 (26-32) pg MCHC 32.9 (32-36) g/dL RDW 13.5 (11.5-14.0) % Plt Count 319 (150-450) x10^3/uL MPV 8.7 (7.5-11.0) fL Gran % 52.3 (36.0-66.0) % Immature Gran % (Auto) 0.2 (0.00-0.4) % Nucleat RBC Rel Count 0.0 (0.00-0.1) % Eos # (Auto) 0.13 (0-0.5) x10^3/uL Immature Gran # (Auto) 0.03 (0.00-0.03) x10^3u/L Absolute Lymphs (auto) 5.00 H (1.0-4.6) x10^3/uL Absolute Monos (auto) 0.67 (0.0-1.3) x10^3/uL Absolute Nucleated RBC 0.00 (0.00-0.01) x10^3u/L Lymphocytes % 40.6 (24.0-44.0) % Monocytes % 5.4 (0.0-12.0) % Eosinophils % 1.1 (0.00-5.0) % Basophils % 0.4 (0.0-0.4) % Absolute Granulocytes 6.44 (1.4-6.9) x10^3/uL Basophils # 0.05 (0-0.4) x10^3/uL D-Dimer 0.32 (0.0-0.50) mg/L Sodium 134 L (137-145) mmol/L Potassium 3.4 L (3.5-5.1) mmol/L Chloride 99 (98-107) mmol/L Carbon Dioxide 22 (22-30) mmol/L Anion Gap 16.2 H (5-15) MEQ/L BUN 13 (7-17) mg/dL Creatinine 0.66 (0.52-1.04) mg/dL Estimated GFR 104.2 ML/MIN Glucose 109 H (74-106) mg/dL Calcium 9.6 (8.4-10.2) mg/dL Magnesium (1.6-2.3) mg/dL Total Bilirubin 0.20 (0.2-1.3) mg/dL AST 29 (14-36) U/L ALT 17 (0-35) U/L Alkaline Phosphatase 135 H (38-126) U/L Troponin I (0.000-0.034) ng/mL Serum Total Protein 8.0 (6.3-8.2) g/dL Albumin 4.7 (3.5-5.0) g/dL 06/03/23 06/03/23 06/03/23 Range/Units 02:00 03:29 04:35 WBC (4.0-10.5) x10^3/uL RBC (4.1-5.4) x10^6/uL Hgb (12.0-16.0) g/dL Hct (35-47) % MCV (78-100) fL MCH (26-32) pg MCHC (32-36) g/dL RDW (11.5-14.0) % Plt Count (150-450) x10^3/uL MPV (7.5-11.0) fL Gran % (36.0-66.0) % Immature Gran % (Auto) (0.00-0.4) % Nucleat RBC Rel Count (0.00-0.1) % Eos # (Auto) (0-0.5) x10^3/uL Immature Gran # (Auto) (0.00-0.03) x10^3u/L Absolute Lymphs (auto) (1.0-4.6) x10^3/uL Absolute Monos (auto) (0.0-1.3) x10^3/uL Absolute Nucleated RBC (0.00-0.01) x10^3u/L Lymphocytes % (24.0-44.0) % Monocytes % (0.0-12.0) % Eosinophils % (0.00-5.0) % Basophils % (0.0-0.4) % Absolute Granulocytes (1.4-6.9) x10^3/uL Basophils # (0-0.4) x10^3/uL D-Dimer (0.0-0.50) mg/L Sodium (137-145) mmol/L Potassium (3.5-5.1) mmol/L Chloride (98-107) mmol/L Carbon Dioxide (22-30) mmol/L Anion Gap (5-15) MEQ/L BUN (7-17) mg/dL Creatinine (0.52-1.04) mg/dL Estimated GFR ML/MIN Glucose (74-106) mg/dL Calcium (8.4-10.2) mg/dL Magnesium 2.0 (1.6-2.3) mg/dL Total Bilirubin (0.2-1.3) mg/dL AST (14-36) U/L ALT (0-35) U/L Alkaline Phosphatase (38-126) U/L Troponin I < 0.012 < 0.012 (0.000-0.034) ng/mL Serum Total Protein (6.3-8.2) g/dL Albumin (3.5-5.0) g/dL 06/03/23 Range/Units 10:13 WBC (4.0-10.5) x10^3/uL RBC (4.1-5.4) x10^6/uL Hgb (12.0-16.0) g/dL Hct (35-47) % MCV (78-100) fL MCH (26-32) pg MCHC (32-36) g/dL RDW (11.5-14.0) % Plt Count (150-450) x10^3/uL MPV (7.5-11.0) fL Gran % (36.0-66.0) % Immature Gran % (Auto) (0.00-0.4) % Nucleat RBC Rel Count (0.00-0.1) % Eos # (Auto) (0-0.5) x10^3/uL Immature Gran # (Auto) (0.00-0.03) x10^3u/L Absolute Lymphs (auto) (1.0-4.6) x10^3/uL Absolute Monos (auto) (0.0-1.3) x10^3/uL Absolute Nucleated RBC (0.00-0.01) x10^3u/L Lymphocytes % (24.0-44.0) % Monocytes % (0.0-12.0) % Eosinophils % (0.00-5.0) % Basophils % (0.0-0.4) % Absolute Granulocytes (1.4-6.9) x10^3/uL Basophils # (0-0.4) x10^3/uL D-Dimer (0.0-0.50) mg/L Sodium (137-145) mmol/L Potassium (3.5-5.1) mmol/L Chloride (98-107) mmol/L Carbon Dioxide (22-30) mmol/L Anion Gap (5-15) MEQ/L BUN (7-17) mg/dL Creatinine (0.52-1.04) mg/dL Estimated GFR ML/MIN Glucose (74-106) mg/dL Calcium (8.4-10.2) mg/dL Magnesium (1.6-2.3) mg/dL Total Bilirubin (0.2-1.3) mg/dL AST (14-36) U/L ALT (0-35) U/L Alkaline Phosphatase (38-126) U/L Troponin I < 0.012 (0.000-0.034) ng/mL Serum Total Protein (6.3-8.2) g/dL Albumin (3.5-5.0) g/dL - Radiology Impressions Radiology Exams & Impressions: Radiology Procedures Category Date Time Status CHEST 1 VIEW (PORTABLE) Stat Exams 06/03/23 03:03 Taken CHEST WITH CONTRAST [CT] Stat Exams 06/03/23 05:48 Completed Assessment/Plan (1) Hypokalemia Current Visit: Yes Status: Chronic Assessment & Plan: -Mg ordered and normal -Given 40meq of oral potassium in ED, will recheck and replenish per protocol Code(s): E87.6 - HYPOKALEMIA (2) Chest pain Current Visit: Yes Status: Acute Qualifiers: Assessment & Plan: --Cardiology consult unavailable, will consider transfer if appropriate, patient of Dr. Hernandez -Initial trops and EKG unremarkable -Recent echo and stress test in November 2022, patient reports unremarkable -ECHO from November 2022 showing IMPRESSION: 1) GROSSLY NORMAL LEFT VENTRICULAR SYSTOLIC FUNCTION. 2) LEFT VENTRICULAR EJECTION FRACTION ESTIMATED TO BE 55%. 3) TRACE MITRAL AND TRICUSPID REGURGITATION -2 gm Na diet -CT demonstrates no acute cardiopulmonary disease -start ASA and NTG sublingual PRN -serial troponin and ECG repeat in A.M. -CBC, CMP, Mg, Phos, lipid panel, HgbA1c in am -continue appropriate baseline home medications -DVT prophylaxis-Lovenox 40 mg SQ daily Code(s): R07.9 - CHEST PAIN, UNSPECIFIED (3) Leukocytosis Current Visit: Yes Status: Acute Assessment & Plan: -Most likely reactive vs infectious process based on presentation -Will order UA -CT chest negative for infective/acute etiology Code(s): D72.829 - ELEVATED WHITE BLOOD CELL COUNT, UNSPECIFIED
[2023-06-03] MEDS ORDERED: Nitrostat 0.4 MG Tablet SL PRN (12:50)
[2023-06-03] MEDS ORDERED: Zofran 4 MG/2 ML VIAL IV PRN (12:51)
[2023-06-03] MEDS ORDERED: Valium 5 MG PO PRN (13:00)
[2023-06-03] MEDS: ENOXAPARIN SODIUM SQ SCH (13:39)
[2023-06-03 13:40] LABS: Bacteria None Seen /HPF (None Seen); Epithelial Cells None Seen /HPF (None Seen); Hyaline Casts NONE SEEN /LPF (0-2); RBC 0-2 /HPF (0-5); WBC 0-2 /HPF (0-5)
[2023-06-03] MEDS: ZOCOR 20MG PO SCH (13:40)
[2023-06-03] MEDS: Protonix 40MG Tablet PO SCH (13:40)
[2023-06-03] MEDS: MAG-OX 400 PO SCH (13:40)
[2023-06-03] MEDS: Zestril 5 MG PO SCH (13:40)
[2023-06-03 13:45] LABS: Appearance CLEAR (CLEAR); Bilirubin NEGATIVE (NEGATIVE); Glucose NEGATIVE (NEGATIVE); Ketones NEGATIVE (NEGATIVE); Nitrite NEGATIVE (NEGATIVE); Protein,Urine Dip NEGATIVE (Negative); RBC TRACE-INTACT Ery/ul (0-5); Urobilinogen 0.2 mg/dL (0-1)
[2023-06-03 13:46] LABS: ADD URINE CULTURE? NO (NO)
--- NOTE | 2023-06-03 13:52 | XRAY ---
CLINICAL HISTORY:chest pain COMPARISON:None TECHNIQUE:X-ray of the chest 1 view AP portable was performed. FINDINGS: There is an ill-defined patchy opacity seen along the right lower paramedian lung zone faintly obscuring the medial hemidiaphragm. Another smaller faint patchy opacity is seen along the left lower zone para-cardiac region. Mild bilateral hilar bennett-bronchial thickening. Radiographic examination of the rest of the chest demonstrates a clear rest of the upper and mid lung zones. Normal configuration of the mediastinum. The ana are normal in size and position. The cardiac size is normal. The bony thorax is unremarkable. The costophrenic and cardiophrenic angles are clear. IMPRESSION: 1. Bilateral lower lung zones para-cardiac patchy opacities that could represent prominent cardiophrenic fat pads yet the inflammatory process cannot be excluded. Advise CT assessment if clinically warranted. 2. Mild bilateral hilar bennett-bronchial thickening. Electronically Signed by: Rachael Elliott MD. (06/03/2023 03:54:58 EST)
[2023-06-03] MEDS: Klor Con PO SCH (21:17)
[2023-06-04 05:11] LABS: Absolute Neutrophil Ct (ANC) 2.33 x10^3/uL (1.4-6.9); BASOPHIL % 0.4 % (0.0-0.4); Basophil (Absolute #) 0.02 x10^3/uL (0-0.4); Eosinophil % 1.7 % (0.00-5.0); Eosinophil (Absolute #) 0.08 x10^3/uL (0-0.5); Hematocrit 38.7 % (35-47); Hemoglobin 12.6 g/dL (12.0-16.0); IMMATURE GRAN # 0.01 x10^3u/L (0.00-0.03); IMMATURE GRAN % 0.2 % (0.00-0.4); Lymphocyte (Absolute #) 1.92 x10^3/uL (1.0-4.6); Mean Cell Volume 88.2 fL (78-100); Mean Corpuscular Hemoglobin 28.7 pg (26-32); Mean Corpuscular Hgb Concent. 32.6 g/dL (32-36); Mean Platelet Volume 8.4 fL (7.5-11.0); Monocyte (Absolute #) 0.32 x10^3/uL (0.0-1.3); Monocytes % 6.8 % (0.0-12.0); Neutrophil % 49.9 % (36.0-66.0); Platelet Count 258 x10^3/uL (150-450); Red Blood Count 4.39 x10^6/uL (4.1-5.4); Red Cell Distribution Width 14.2 % (11.5-14.0); White Blood Count 4.7 x10^3/uL (4.0-10.5)
--- NOTE | 2023-06-04 05:16 | PCM.DS ---
Discharge Summary Date of Admission: 06/03/23 08:10 Date of Discharge: 06/04/23 Admitting Physician: AHSAN GUTIERREZ MD Primary Care Provider: NO FAMILY DOCTOR Allergies Allergies vilazodone [From Viibryd] Allergy (Severe, Verified 06/03/23 09:17) Difficulty Swallowing Hospital Summary - Hospital Course Hospital Course: is a 53 year old female with a pmhx of DVT, arrythmia, HLD, HTN, and GERD who presented 06/03/23 to ED with complaints of chest pain. Patient reports the onset of the pain was around 1800 on 06/02/23. The pain intermittent with duration of 10-20 minutes about every hour, is substernal and initially radiated to her back. She describes the pain as crushing, pressure-like pain that is relieved with sitting up. She did some associated shortness of breath and two episodes of diarrhea. No aggravating factors. During interview, pain has resided some, now aching in characteristic with some slight heaviness. She follows with Dr. Hernandez outpatient and had a recent echo in November 2022 as well as a stress test with unremarkable findings. In ED, patient was slightly hypertensive at 146/93 otherwise vitals signs are unremarkable. EKG with NS. CT of the chest showing no acute abnormalities. Lab findings remarkable for WBC at 12.3, sodium at 134, potassium at 3.4, Alk phos at 135, and GAP at 16.2. Patient was given 324mg ASA, protonix, and potassium. Serial EKGs and troponin have been unremarkable. Chest pain has resolved. Recommend follow up with Cardiology. She will likely need stress test pending cardiology's evaluation outpatient. Discharge Note New Diagnosis: CP Follow Up: PCP/Cards Latest Assessment & Plan -Mg ordered and normal -Given 40meq of oral potassium in ED, will recheck and replenish per protocol Code(s): E87.6 - HYPOKALEMIA (2) Chest pain Current Visit: Yes Status: Acute Qualifiers: Assessment & Plan: --Cardiology consult unavailable, will consider transfer if appropriate, patient of Dr. Hernandez -Initial trops and EKG unremarkable -Recent echo and stress test in November 2022, patient reports unremarkable -ECHO from November 2022 showing IMPRESSION: 1) GROSSLY NORMAL LEFT VENTRICULAR SYSTOLIC FUNCTION. 2) LEFT VENTRICULAR EJECTION FRACTION ESTIMATED TO BE 55%. 3) TRACE MITRAL AND TRICUSPID REGURGITATION -2 gm Na diet -CT demonstrates no acute cardiopulmonary disease -start ASA and NTG sublingual PRN -serial troponin and ECG repeat in A.M. -CBC, CMP, Mg, Phos, lipid panel, HgbA1c in am -continue appropriate baseline home medications -DVT prophylaxis-Lovenox 40 mg SQ daily Code(s): R07.9 - CHEST PAIN, UNSPECIFIED (3) Leukocytosis Current Visit: Yes Status: Acute Assessment & Plan: -Most likely reactive vs infectious process based on presentation -Will order UA -CT chest negative for infective/acute etiology I spent 35 minutes [id number] with the patient on the day of discharge performing discharge exam, discussing hospital stay and discharge instructions w [facility] patient and caregivers, preparation of discharge records, prescriptions & referral forms and addressing any questions/concerns the patient had as documented above. - Vitals & Intake/Output Vital Signs: Vital Signs Temperature 98.0 F 06/04/23 03:47 Pulse Rate 64 06/04/23 03:47 Respiratory Rate 17 06/04/23 03:47 Blood Pressure 121/68 06/04/23 03:47 O2 Sat by Pulse Oximetry 96 06/04/23 03:47 Intake & Output: Intake & Output 06/01/23 06/02/23 06/03/23 06/04/23 11:59 11:59 11:59 11:59 Intake Total 240 1060 Output Total 1950 Balance 240 -890 Weight 89.1 kg - Lab Result Diagrams: 06/04/23 04:56 06/04/23 04:56 Lab Results-Last 24 Hrs: Lab Results-Last 24 Hours 06/03/23 06/03/23 06/03/23 Range/Units 04:35 10:13 13:40 Potassium 4.0 (3.5-5.1) mmol/L Hemoglobin A1c (4.5-6.0) % Phosphorus (2.5-4.5) mg/dL Troponin I < 0.012 < 0.012 (0.000-0.034) ng/mL Urine Color (YELLOW) Urine Appearance (CLEAR) Urine pH (5-6) Ur Specific [place] (1.005-1.025) POC Urine Protein Conf (Negative) Urine Ketones (NEGATIVE) Urine Nitrite (NEGATIVE) Urine Bilirubin (NEGATIVE) Urine Urobilinogen (0-1) mg/dL Urine Leukocytes (NEGATIVE) U Hyaline Cast (Auto) (0-2) /LPF Urine RBC (0-5) [place]/ul Urine Microscopic RBC (0-5) /HPF Urine Microscopic WBC (0-5) /HPF Ur Epithelial Cells (None Seen) /HPF Urine Bacteria (None Seen) /HPF Urine Culture Reflexed (NO) Urine Glucose (NEGATIVE) mg/dL 06/03/23 06/03/23 06/03/23 Range/Units 13:40 13:40 13:45 Potassium (3.5-5.1) mmol/L Hemoglobin A1c 5.73 (4.5-6.0) % Phosphorus 4.0 (2.5-4.5) mg/dL Troponin I (0.000-0.034) ng/mL Urine Color YELLOW (YELLOW) Urine Appearance CLEAR (CLEAR) Urine pH 6.0 (5-6) Ur Specific [place] 1.010 (1.005-1.025) POC Urine Protein Conf NEGATIVE (Negative) Urine Ketones NEGATIVE (NEGATIVE) Urine Nitrite NEGATIVE (NEGATIVE) Urine Bilirubin NEGATIVE (NEGATIVE) Urine Urobilinogen 0.2 (0-1) mg/dL Urine Leukocytes NEGATIVE (NEGATIVE) U Hyaline Cast (Auto) NONE SEEN (0-2) /LPF Urine RBC TRACE-INTACT A (0-5) [place]/ul Urine Microscopic RBC 0-2 (0-5) /HPF Urine Microscopic WBC 0-2 (0-5) /HPF Ur Epithelial Cells None Seen (None Seen) /HPF Urine Bacteria None Seen (None Seen) /HPF Urine Culture Reflexed NO (NO) Urine Glucose NEGATIVE (NEGATIVE) mg/dL - Radiology Exams Ordered Rad Exams-Entire Visit: Radiology Procedures Category Date Time Status CHEST 1 VIEW (PORTABLE) Stat Exams 06/03/23 03:03 Completed CHEST WITH CONTRAST [CT] Stat Exams 06/03/23 05:48 Completed ECHO W/2D AND DOPPLER [US] Routine Exams 06/03/23 14:19 Taken - Procedures and Test Procedures and Tests throughout Hospitalization: Therapy Orders & Screens 06/03/23 12:29 EKG REPEAT IN AM Comment: Diagnosis: chest pain Discharge Exam General Appearance: no apparent distress Neurologic Exam: alert, oriented x 3, cooperative Eye Exam: PERRL Ears, Nose, Throat Exam: normal ENT inspection Neck Exam: normal inspection Respiratory Exam: normal breath sounds, lungs clear Cardiovascular Exam: regular rate/rhythm, normal heart sounds Gastrointestinal/Abdomen Exam: soft Pelvic Exam: deferred Rectal Exam: deferred Back Exam: normal inspection Extremity Exam: normal inspection Skin Exam: normal color Final Diagnosis/Problem List - Final Discharge Diagnosis/Problem (1) Hypokalemia Current Visit: Yes Status: Chronic Code(s): E87.6 - HYPOKALEMIA (2) Chest pain Current Visit: Yes Status: Acute Code(s): R07.9 - CHEST PAIN, UNSPECIFIED (3) Leukocytosis Current Visit: Yes Status: Acute Code(s): D72.829 - ELEVATED WHITE BLOOD CELL COUNT, UNSPECIFIED - Discharge Disposition: Home, Self-Care Condition: Stable Prescriptions: Continue Potassium Chloride 20 Meq Tab [Potassium Chloride 20 MEQ TABLET] 20 meq PO BID Magnesium Oxide 400 mg [Mag-Ox 400] 400 mg PO DAILY Diazepam [Valium] 2 mg PO DAILY PRN #30 tablet PRN Reason: Anxiety Omeprazole 20 MG [Prilosec 20 mg] 20 mg PO DAILY #60 capsule. Lisinopril 5 mg [Zestril 5 MG] 5 mg PO DAILY Pravastatin Sodium 40 mg PO DAILY Instructions: Hypokalemia (DC), Chest Pain (DC) Follow up with: JAYCOB COOPER MD [ACTIVE STAFF] - 06/11/23 10:00 am YOAN HERNANDEZ [CONSULTING PHYSICIAN] - 06/15/23 9:45 am
[2023-06-04 05:21] LABS: ALBUMIN 3.9 g/dL (3.5-5.0); ANION GAP 10.2 MEQ/L (5-15); BILIRUBIN,TOTAL 0.3 mg/dL (0.2-1.3); Creatinine 1 0.69 mg/dL (0.52-1.04); EST GLOMERULAR FILTRATION RATE 103.1 ML/MIN; Potassium 3.9 mmol/L (3.5-5.1); Total Protein 6.9 g/dL (6.3-8.2)
[2023-06-04 05:30] LABS: Risk Ratio 3.2
[2023-06-04] MEDS: TYLENOL 325 MG PO PRN (05:30)
[2023-06-04 07:33] VITALS: RESP 16
[2023-06-04] MEDS: Protonix 40MG Tablet PO SCH (09:10)
[2023-06-04] MEDS: ZOCOR 20MG PO SCH (09:10)
[2023-06-04] MEDS: ENOXAPARIN SODIUM SQ SCH (09:10)
[2023-06-04] MEDS: MAG-OX 400 PO SCH (09:10)
[2023-06-04] MEDS: Klor Con PO SCH (09:10)
[2023-06-04] MEDS: Zestril 5 MG PO SCH (09:10)
[2023-06-04 11:07] VITALS: BP 109/73; PULSE 79; TEMP 97.6; O2SAT 95
--- NOTE | 2023-06-09 14:23 | ECHO ---
DATE OF PROCEDURE: 06/03/2023 CLINICAL INFORMATION: Chest pain. The M-mode 2D, and Doppler echocardiogram including color flow Doppler shows the left ventricle is normal in size. There is no thrombus noted. The wall thickness is normal. There is accentuated contractility of the left ventricle. The ejection fraction is calculated to be 74%. There is evidence of possible impaired left ventricular relaxation. The right ventricle is normal. The left atrium is normal. The interatrial septum is intact. The right atrium is normal. The aortic valve opens well. There is no aortic regurgitation. The mitral valve is normal. There is mild tricuspid regurgitation. The right ventricular systolic pressure is calculated to be 29 mm of [place]. The pulmonic valve is not well visualized. The aortic root is normal. There is no pericardial effusion present. It should be noted that there are 50 images in this study. IMPRESSION: 1) ACCENTUATED CONTRACTILITY OF THE LEFT VENTRICLE. 2) POSSIBLE IMPAIRED LEFT VENTRICULAR RELAXATION. 3) MILD TRICUSPID REGURGITATION. 4) NORMAL RIGHT VENTRICULAR SYSTOLIC PRESSURE.
== END 2023-06-04 11:10 | disposition home or self-care (01) ==
LOC: ED 01:32 → MED SURG 08:10
PROVIDERS: ADMIT Internal Medicine; ATTEND Internal Medicine
DX: E87.6 Hypokalemia (principal); R07.9 Chest pain, unspecified; D72.829 Elevated white blood cell count, unspecified; E78.5 Hyperlipidemia, unspecified; I10 Essential (primary) hypertension; Z86.718 Personal history of other venous thrombosis and embolism; Z79.899 Other long term (current) drug therapy; Z20.828 Contact with and (suspected) exposure to other viral communicable diseases
CPT/HCPCS: 36000; 36415; 71045; 71260; 80053; 80061; 81015; 83036; 83721; 83735; 84100; 84132; 84484; 85025; 85379; 93005; 93041; 93268; 93306; 94760; 99284; G0378; Q3014; J1650; A9270-GY

== ENCOUNTER 2024-01-13 06:14 | Day surgery (SDC) | payer OTHER ==
[2024-01-13 06:29] VITALS: RESP 18
[2024-01-13] MEDS: Lactated Ringers 1,000 ML IV SCH (06:46)
[2024-01-13] MEDS ORDERED: DIPRIVAN 200 MG/20 ML IV ONE ×2 (07:33→07:54)
[2024-01-13] MEDS ORDERED: Xylocaine-Mpf 2% 5 Ml Vial ONE (07:35)
[2024-01-13 08:37] VITALS: TEMP 97.1; O2SAT 98
[2024-01-13 08:53] VITALS: BP 123/76; PULSE 60
--- NOTE | 2024-01-14 20:23 | OP ---
SURGERY DATE/TIME: 01/13/2024 [id number] - [id number] PREOPERATIVE DIAGNOSIS: Screening colonoscopy. POSTOPERATIVE DIAGNOSIS: Normal colon. PROCEDURE: Colonoscopy. SURGEON: Raheem Mckenzie MD. ANESTHESIA: MAC by Anselmo White CRNA. ESTIMATED BLOOD LOSS: None. SPECIMENS: None. DESCRIPTION OF PROCEDURE AND FINDINGS: After informed written consent was obtained, the patient was taken to the endoscopy suite. She was placed in a left lateral decubitus position, and anesthesia was titrated to desired level of consciousness. Digital rectal exam showed normal sphincter tone and no internal lesions. The scope was inserted in the rectum and sequentially, the entire colonic mucosa was traversed. The level of the cecum was reached and verified under direct visualization of the ileocecal valve. Upon withdrawal, careful mucosal inspection revealed no gross mucosal abnormalities. Prep was noted to be good. Prior to withdrawal, retroflexion showed no internal lesions. The scope was removed, and patient was transferred to the recovery room in excellent condition. She will be advised routine 10-year followup unless symptoms warrant sooner evaluation.
== END 2024-01-13 08:53 | disposition home or self-care (01) ==
LOC: SDC 06:14
PROVIDERS: ATTEND Family Medicine
DX: Z12.11 Encounter for screening for malignant neoplasm of colon (principal)
CPT/HCPCS: J2704

== ENCOUNTER 2024-02-29 07:11 | Emergency (ER) | payer OTHER ==
[2024-02-29 07:36] VITALS: TEMP 98.2
[2024-02-29 08:11] LABS: Absolute Neutrophil Ct (ANC) 5.05 x10^3/uL (1.56-6.13); BASOPHIL % 0.2 % (0.1-1.2); Basophil (Absolute #) 0.02 x10^3/uL (0.01-0.08); Eosinophil % 0.7 % (0.7-5.8); Eosinophil (Absolute #) 0.06 x10^3/uL (0.04-0.36); Hemoglobin 13.7 g/dL (11.2-15.7); IMMATURE GRAN # 0.01 x10^3u/L (0.001-0.031); IMMATURE GRAN % 0.1 % (0.001-0.429); Lymphocyte (Absolute #) 3.28 x10^3/uL (1.18-3.74); Lymphocytes % 37.1 % (19.3-51.7); Mean Cell Volume 84.4 fL (79.4-94.8); Mean Corpuscular Hemoglobin 29.7 pg (25.6-32.2); Mean Corpuscular Hgb Concent. 35.1 g/dL (32.2-35.5); Mean Platelet Volume 8.9 fL (9.4-12.3); Monocyte (Absolute #) 0.41 x10^3/uL (0.24-0.86); Monocytes % 4.6 % (4.7-12.5); Neutrophil % 57.3 % (34.0-71.1); Platelet Count 312 x10^3/uL (182-369); Red Blood Count 4.62 x10^6/uL (3.93-5.22); Red Cell Distribution Width 13.7 % (11.7-14.4); White Blood Count 8.8 x10^3/uL (3.98-10.04)
--- NOTE | 2024-02-29 08:17 | ERPHSYRPT ---
- History of Present Illness Time Seen by Provider: 02/29/24 07:30 Source: patient Exam Limitations: no limitations Patient Subjective Stated Complaint: Hypertension Triage Nursing Assessment: Patient ambulated back to ED and transferred self to bed. Patient A+O X3. Patient's skin pink and diaphoretic. Patient complains of intermittent chest discomfort since last . Patient states last she had a minute episode where her heart was beating real fast and she felt like she was going to pass out. Patient states that subsided and she felt better. Patient states she was fine on Wednesday and Wednesday. Patient states on Wednesday she started having a heaviness/tightness in her chest that eventually subsided. Patient states Wednesday she started having pain to her left shoulder blade and felt weak. Patient states today she woke up with pain to left shoulder blade, left side of neck and down left arm with some numbness 5/10. Patient's hands are sweaty. Patient also complains of occasional SOB. Lungs clear a/p madina. Physician History: Patient is a 53-year-old female with a history of hypertension hypercholeste rolemia DVT presents to our ED for evaluation of intermittent chest discomfort, heart palpitations shortness of breath that started last week approximately 5 days ago. Patient reports near syncopal episodes. Patient states she had similar episodes in the past and was found to have hypokalemia. Patient currently on potassium and magnesium supplementation. No associated nausea vomiting. No diaphoresis reported. Symptoms are mild to moderate in intensity. No specific worsening or improving factors. Patient otherwise feels well. She voices no other complaints or concerns at this time. Portions of this note were created with voice recognition technology. There may be grammatical, spelling, punctuation or sound alike errors Timing/Duration: day(s) (5 days) Severity: moderate Modifying Factors: Improves With: nothing Associated Symptoms: shortness of breath (Near syncope) Allergies/Adverse Reactions: vilazodone [From Viibryd] Allergy (Severe, Verified 02/29/24 07:14) Difficulty Swallowing Home Medications: Potassium Chloride 20 Meq Tab [Potassium Chloride 20 MEQ TABLET] 20 meq PO BID 03/18/14 [History] Magnesium Oxide 400 mg [Mag-Ox 400] 400 mg PO DAILY 03/17/16 [History] Lisinopril 5 mg [Zestril 5 MG] 5 mg PO DAILY 06/03/23 [History] Pravastatin Sodium 40 mg PO DAILY 06/03/23 [History] Vit A/Vit C/Vit E/Zinc/Copper [Eye Multivitamin Tablet] 1 each PO DAILY 11/09/23 [History] Hx Tetanus, Diphtheria Vaccination/Date Given: Yes (2012) Hx Influenza Vaccination/Date Given: No Hx Pneumococcal Vaccination/Date Given: No Immunizations Up to Date: Yes Travel Risk - International Travel Have you traveled outside of the country in past 3 weeks: No - Emerging Infectious Disease Are you exhibiting symptoms associated with any current EIDs: No - Review of Systems Constitutional: No Symptoms, No Fever, No Chills Eyes: No Symptoms Ears, Nose, & Throat: No Symptoms Respiratory: No Symptoms, No Cough, No Dyspnea Cardiac: No Symptoms, No Chest Pain, No Edema, No Syncope Abdominal/Gastrointestinal: No Symptoms, No Abdominal Pain, No Nausea, No Vomiting, No Diarrhea Genitourinary Symptoms: No Symptoms, No Dysuria Musculoskeletal: No Symptoms, No Back Pain, No Neck Pain Skin: No Symptoms, No Rash Neurological: No Symptoms, No Dizziness, No Focal Weakness, No Sensory Changes Psychological: No Symptoms Endocrine: No Symptoms Hematologic/Lymphatic: No Symptoms Immunological/Allergic: No Symptoms All Other Systems: Reviewed and Negative - Past Medical History Pertinent Past Medical History: Yes Neurological History: No Pertinent History ENT History: No Pertinent History Cardiac History: Arrhythmia, Deep Vein Thrombosis, High Cholesterol, Hypertension, Other Respiratory History: No Pertinent History Endocrine Medical History: No Pertinent History Musculoskeletal History: No Pertinent History GI Medical History: No Pertinent History, GERD, Hemorrhoids History: No Pertinent History Psycho-Social History: Anxiety Female Reproductive Disorders: No Pertinent History Other Medical History: Low Potassium, mag see Saul for nephrolgist and [facility]ous for cardiology. no dx of anxiety just feels anxious - Past Surgical History Past Surgical History: Yes Neuro Surgical History: No Pertinent History Cardiac: No Pertinent History Respiratory: No Pertinent History Gastrointestinal: No Pertinent History Genitourinary: No Pertinent History Musculoskeletal: No Pertinent History Female Surgical History: Tubal Ligation Other Surgical History: tonsils, left foot, tubal ligation Significant Family History: no pertinent family hx - Female History Hx Last Menstrual Period: [place] Hx Now: No - Social History Smoking Status: Never smoker Exposure to second hand smoke: No Alcohol Use: None Drug Use: none Patient Lives Alone: No - Social Determinants of Health Will the patient participate in the screening: Yes Do you worry about a steady place to live?: No Do you have any problems with any of the following?: No known problems In the past 12 months,have you had to go without utilities?: No Transportation Issues: No Has anyone in your support network made you feel unsafe?: No Have you or anyone in your house had to go without enough: No - Nursing Vital Signs Nursing Vital Signs: Initial Vital Signs Temperature 98.2 F 02/29/24 07:19 Pulse Rate 95 H 02/29/24 07:19 Respiratory Rate 20 02/29/24 07:19 Blood Pressure 152/94 02/29/24 07:19 O2 Sat by Pulse Oximetry 97 02/29/24 07:19 Pain Scale Pain Intensity 0 - Physical Exam General Appearance: no apparent distress, alert Eye Exam: PERRL/EOMI, eyes nml inspection Ears, Nose, Throat Exam: normal ENT inspection, TMs normal, pharynx normal, moist mucous membranes Neck Exam: normal inspection, non-tender, supple, full range of motion Respiratory Exam: normal breath sounds, lungs clear, No respiratory distress Cardiovascular Exam: regular rate/rhythm, normal heart sounds, normal peripheral pulses Gastrointestinal/Abdomen Exam: soft, normal bowel sounds, No tenderness, No mass Back Exam: normal inspection, normal range of motion, No CVA tenderness, No vertebral tenderness Extremity Exam: normal inspection, normal range of motion, pelvis stable Neurologic Exam: alert, oriented x 3, cooperative, normal mood/affect, nml cerebellar function, nml station & gait, sensation nml, No motor deficits Skin Exam: normal color, warm, dry, No rash Lymphatic Exam: No adenopathy SpO2 Interpretation: normal SpO2: 93 O2 Delivery: Room Air - Course Nursing assessment & vital signs reviewed: Yes EKG Interpreted by Me: RATE (94), Sinus Rhythm, NORMAL AXIS, NORMAL INTERVALS, N ORMAL QRS - Radiology Exams Chest X-ray Interpretation: Teleradiologist Report (No new or acute findings) Ordered Tests: Active Orders 24 hr Category Date Time Status Cycle Liaison STAT Care 02/29/24 07:56 Completed EKG-ER Only STAT Care 02/29/24 07:55 Completed IV Insertion STAT Care 02/29/24 07:55 Completed Pulse Oximetry (ED) STAT Care 02/29/24 07:55 Completed CHEST 1 VIEW (PORTABLE) Stat Exams 02/29/24 07:56 Completed CBC W DIFF Stat Lab 02/29/24 07:23 Completed CMP Stat Lab 02/29/24 07:23 Completed D-DIMER QUANTITATIVE Stat Lab 02/29/24 07:23 Completed MAGNESIUM Stat Lab 02/29/24 07:23 Completed NT PRO BNPII Stat Lab 02/29/24 07:23 Completed TROPONIN Q4H Lab 02/29/24 07:23 Completed TROPONIN Q4H Lab 02/29/24 11:30 Completed TSH, 3RD Generation Stat Lab 02/29/24 07:23 Completed UA W/RFX UR CULTURE Stat Lab 02/29/24 08:52 Completed Bardy 3-7 Day Holter ONCE RT 02/29/24 12:00 Completed Lab/Rad Data: Laboratory Result Diagrams 02/29/24 07:23 02/29/24 07:23 Laboratory Results 02/29/24 02/29/24 02/29/24 Range/Units 11:30 08:52 07:23 WBC (3.98-10.04) x10^3/uL RBC (3.93-5.22) x10^6/uL Hgb (11.2-15.7) g/dL Hct (34.1-44.9) % MCV (79.4-94.8) fL MCH (25.6-32.2) pg MCHC (32.2-35.5) g/dL RDW (11.7-14.4) % Plt Count (182-369) x10^3/uL MPV (9.4-12.3) fL Gran % (34.0-71.1) % Immature Gran % (Auto) (0.001-0.429) % Nucleat RBC Rel Count (0.00-0.2) % Eos # (Auto) (0.04-0.36) x10^3/uL Immature Gran # (Auto) (0.001-0.031) x10^3u/L Absolute Lymphs (auto) (1.18-3.74) x10^3/uL Absolute Monos (auto) (0.24-0.86) x10^3/uL Absolute Nucleated RBC (0.00-0.012) x10^3u/L Lymphocytes % (19.3-51.7) % Monocytes % (4.7-12.5) % Eosinophils % (0.7-5.8) % Basophils % (0.1-1.2) % Absolute Granulocytes (1.56-6.13) x10^3/uL Basophils # (0.01-0.08) x10^3/uL D-Dimer (0.0-0.50) mg/L Sodium (135-145) mmol/L Potassium (3.5-5.1) mmol/L Chloride (98-107) mmol/L Carbon Dioxide (22-30) mmol/L Anion Gap (5-15) MEQ/L BUN (7-17) mg/dL Creatinine (0.52-1.04) mg/dL Estimated GFR ML/MIN Glucose (74-106) mg/dL Calcium (8.4-10.2) mg/dL Magnesium (1.6-2.3) mg/dL Total Bilirubin (0.2-1.3) mg/dL AST (14-36) U/L ALT (0-35) U/L Alkaline Phosphatase (38-126) U/L Troponin I < 0.012 < 0.012 (0.000-0.033) ng/mL NT-Pro-B Natriuret Pep (<300) pg/mL Serum Total Protein (6.3-8.2) g/dL Albumin (3.5-5.0) g/dL TSH 3rd Generation (0.470-4.680) mIU/L Urine Color Yellow (Yellow) Urine Appearance Clear (Clear) Urine pH 7.5 (4.6-8.0) Ur Specific [place] 1.010 (1.005-1.030) Urine Protein Negative (Negative) Urine Glucose (UA) Negative (Negative) mg/dL Urine Ketones Negative (Negative) Urine Blood Trace (Negative) Urine Nitrite Negative (Negative) Urine Bilirubin Negative (Negative) Urine Urobilinogen 0.2 (0.2) mg/dL Ur Leukocyte Esterase Negative (Negative) U Hyaline Cast (Auto) NONE SEEN (0-2) /LPF Urine Microscopic RBC 6-10 A (0-5) /HPF Urine Microscopic WBC 0-2 (0-5) /HPF Ur Epithelial Cells None Seen (None Seen) /HPF Urine Bacteria None Seen (None Seen) /HPF Urine Culture Reflexed NO (NO) 02/29/24 02/29/24 02/29/24 Range/Units 07:23 07:23 07:23 WBC 8.8 (3.98-10.04) x10^3/uL RBC 4.62 (3.93-5.22) x10^6/uL Hgb 13.7 (11.2-15.7) g/dL Hct 39.0 (34.1-44.9) % MCV 84.4 (79.4-94.8) fL MCH 29.7 (25.6-32.2) pg MCHC 35.1 (32.2-35.5) g/dL RDW 13.7 (11.7-14.4) % Plt Count 312 (182-369) x10^3/uL MPV 8.9 L (9.4-12.3) fL Gran % 57.3 (34.0-71.1) % Immature Gran % (Auto) 0.1 (0.001-0.429) % Nucleat RBC Rel Count 0.0 (0.00-0.2) % Eos # (Auto) 0.06 (0.04-0.36) x10^3/uL Immature Gran # (Auto) 0.01 (0.001-0.031) x10^3u/L Absolute Lymphs (auto) 3.28 (1.18-3.74) x10^3/uL Absolute Monos (auto) 0.41 (0.24-0.86) x10^3/uL Absolute Nucleated RBC 0.00 (0.00-0.012) x10^3u/L Lymphocytes % 37.1 (19.3-51.7) % Monocytes % 4.6 L (4.7-12.5) % Eosinophils % 0.7 (0.7-5.8) % Basophils % 0.2 (0.1-1.2) % Absolute Granulocytes 5.05 (1.56-6.13) x10^3/uL Basophils # 0.02 (0.01-0.08) x10^3/uL D-Dimer 0.49 (0.0-0.50) mg/L Sodium 139 (135-145) mmol/L Potassium 3.6 (3.5-5.1) mmol/L Chloride 101 (98-107) mmol/L Carbon Dioxide 25 (22-30) mmol/L Anion Gap 16.2 H (5-15) MEQ/L BUN 14 (7-17) mg/dL Creatinine 0.68 (0.52-1.04) mg/dL Estimated GFR 103.4 ML/MIN Glucose 116 H (74-106) mg/dL Calcium 9.8 (8.4-10.2) mg/dL Magnesium 2.0 (1.6-2.3) mg/dL Total Bilirubin 0.60 (0.2-1.3) mg/dL AST 37 H (14-36) U/L ALT 30 (0-35) U/L Alkaline Phosphatase 134 H (38-126) U/L Troponin I (0.000-0.033) ng/mL NT-Pro-B Natriuret Pep 49.7 (<300) pg/mL Serum Total Protein 7.8 (6.3-8.2) g/dL Albumin 4.7 (3.5-5.0) g/dL TSH 3rd Generation 2.356 (0.470-4.680) mIU/L Urine Color (Yellow) Urine Appearance (Clear) Urine pH (4.6-8.0) Ur Specific [place] (1.005-1.030) Urine Protein (Negative) Urine Glucose (UA) (Negative) mg/dL Urine Ketones (Negative) Urine Blood (Negative) Urine Nitrite (Negative) Urine Bilirubin (Negative) Urine Urobilinogen (0.2) mg/dL Ur Leukocyte Esterase (Negative) U Hyaline Cast (Auto) (0-2) /LPF Urine Microscopic RBC (0-5) /HPF Urine Microscopic WBC (0-5) /HPF Ur Epithelial Cells (None Seen) /HPF Urine Bacteria (None Seen) /HPF Urine Culture Reflexed (NO) - Progress Progress: improved Progress Note: 53-year-old female presents to emergency department for evaluation of heart palpitations x 5 days. Physical exam nonremarkable. D-dimer negative troponin negative x 2. Vital stable. Patient asymptomatic. No complaints. 24-hour Holter monitor applied. Results to be sent to her primary care doctor. Patient discharged home. Vital stable. Patient agrees to follow-up as discussed. She voiced no other complaints or concerns. Portions of this note were created with voice recognition technology. There may be grammatical, spelling, punctuation or sound alike errors Complexity problem addressed is moderate acute complicated. No critical care time. Complexity of data reviewed and analyzed is moderate. Test ordered test reviewed results analyzed and correlated clinically with history and physical exam. Risk of complication and or risk of morbidity/mortality of patient management is low. Vital stable. Time spent to discharge patient approximately 20 minutes. Plan of care established for shared decision making. No social determinants of health present to impede follow-up. Portions of this note were created with voice recognition technology. There may be grammatical, spelling, punctuation or sound alike errors 02/29/24 21:10 Counseled pt/family regarding: lab results, diagnosis, need for follow-up, rad results - Departure Departure Disposition: Home Clinical Impression: Heart palpitations, Near syncope Condition: Stable Critical Care Time: No Referrals: JAYCOB COOPER MD [Primary Care Provider] - Follow up/PCP as directed Instructions: High blood pressure in adults Additional Instructions: Appointment with Dr. Hernandez's [facility] on February at 10am. Go into [address] entrance and turn left. Outpatient Orders: Holter Monitor Facility: [facility]. Hosp, Location: RESPIRATORY THERAPY
[2024-02-29 09:03] LABS: Appearance Clear (Clear); Bacteria None Seen /HPF (None Seen); Bilirubin Negative (Negative); Blood Trace (Negative); Epithelial Cells None Seen /HPF (None Seen); Glucose, Urine Negative (Negative); Hyaline Casts NONE SEEN /LPF (0-2); Ketones Negative (Negative); Leukocyte Esterase Negative (Negative); Nitrite Negative (Negative); Ph 7.5 (4.6-8.0); Protein,Urine Dip Negative (Negative); Urobilinogen 0.2 mg/dL (0.2); WBC 0-2 /HPF (0-5)
[2024-02-29 09:04] LABS: ADD URINE CULTURE? NO (NO)
--- NOTE | 2024-02-29 09:07 | XRAY ---
Indication: Short of breath. Comparison: June 03, 2023 Portable chest remains inflated and clear. Heart not enlarged again with CT proven prominent epicardiac fat. Bony thorax intact. No new/acute findings.
[2024-02-29 09:11] LABS: ALBUMIN 4.7 g/dL (3.5-5.0); ANION GAP 16.2 MEQ/L (5-15); BILIRUBIN,TOTAL 0.6 mg/dL (0.2-1.3); Calcium 9.8 mg/dL (8.4-10.2); Creatinine 1 0.68 mg/dL (0.52-1.04); EST GLOMERULAR FILTRATION RATE 103.4 ML/MIN; NT PRO BNPII 49.7 pg/mL (<300); Potassium 3.6 mmol/L (3.5-5.1); TSH, 3RD Generation 2.356 mIU/L (0.470-4.680); Total Protein 7.8 g/dL (6.3-8.2)
[2024-02-29 12:05] VITALS: BP 166/97; PULSE 69; RESP 17
[2024-02-29 21:16] VITALS: O2SAT 93
== END 2024-02-29 12:35 | disposition home or self-care (01) ==
LOC: ED 07:11
DX: R55 Syncope and collapse (principal); R00.2 Palpitations; R07.9 Chest pain, unspecified; R06.02 Shortness of breath; E78.5 Hyperlipidemia, unspecified; I10 Essential (primary) hypertension; Z79.899 Other long term (current) drug therapy
CPT/HCPCS: 36000; 36415; 71045; 80053; 81001; 83735; 83880; 84443; 84484; 85025; 85379; 93005; 93041; 93225; 94760; 99284